=== PATIENT | male | born 1945 | race Caucasian/White ===

== ENCOUNTER 2020-08-03 07:40 | Emergency (ER) | payer MEDICARE ==
[2020-08-03] MEDS ORDERED: ONDANSETRON HCL 4 MG/2 ML VIAL ONE (08:12)
[2020-08-03] MEDS ORDERED: ACETAMINOPHEN 325 MG TAB ONE (08:12)
[2020-08-03] MEDS ORDERED: SODIUM CHLORIDE 0.9% 1000ML 1,000 ML IV ONE (08:13)
[2020-08-03 08:43] LABS: BASOPHILS % (AUTO) 0.3 % (0.0-5.0); EOSINOPHILS % (AUTO) 0.3 % (0.0-8.0); HEMATOCRIT 44.9 % (42-54); LYMPHOCYTES % (AUTO) 4.6 % (21.0-51.0); MEAN CORPUSCULAR HEMOGLOBIN 31.7 pg (27.0-33.0); MEAN CORPUSCULAR HGB CONC 34.1 g/dL (32.0-36.0); MONOCYTES % (AUTO) 5.1 % (3.0-13.0); NEUTROPHILS % (AUTO) 89.4 % (40.0-77.0); PLATELET COUNT (AUTO) 154 K/uL (130-400); RED BLOOD CELL COUNT(AUTO) 4.83 MIL/uL (4.50-6.20); RED CELL DISTRIBUTION WIDTH 12.2 % (11.0-15.5); WHITE BLOOD COUNT (AUTO) 8.8 K/uL (4.8-10.8)
[2020-08-03 08:52] LABS: POTASSIUM 3.7 mmol/L (3.5-5.1)
[2020-08-03 08:56] LABS: ALBUMIN 3.2 g/dL (3.5-5.0); BILIRUBIN,TOTAL 0.9 mg/dL (0.2-1.0); TOTAL PROTEIN, SERUM 7.4 g/dL (6.0-8.3)
[2020-08-03 09:04] LABS: INR 1.16 (0.85-1.15); PROTHROMBIN TIME 12.5 SEC (9.6-11.6)
[2020-08-03 09:05] LABS: PARTIAL THROMBOPLASTIN TIME 33.7 SEC (26.3-35.5)
[2020-08-04] MEDS ORDERED: pradaxa (21:10)
[2020-08-04] MEDS ORDERED: OMEP20CA12 PO (21:11)
[2020-08-04] MEDS ORDERED: SIMVASTAT (21:12)
[2020-08-04] MEDS ORDERED: atenolo (21:12)
== END 2020-08-03 09:58 | disposition home or self-care (01) ==
LOC: EDH 07:40
DX: U07.1 COVID-19 (principal); I48.91 Unspecified atrial fibrillation; Z91.048 Other nonmedicinal substance allergy status
CPT/HCPCS: 36415; 71045; 80053; 82550; 84484; 85025; 85610; 85730; 87040 ×2; 87426; 87804 ×2; 93005; 96361; 96374; 99285; J2405; J7030

== ENCOUNTER 2020-08-04 14:22 | Inpatient (IN) | payer MEDICARE ==
[~2020-08-04] VITALS: Ht 177.8 cm; Wt 116.6 kg
[2020-08-04 15:31] LABS: BASOPHILS % (AUTO) 0.3 % (0.0-5.0); EOSINOPHILS % (AUTO) 0.1 % (0.0-8.0); HEMATOCRIT 43.2 % (42-54); LYMPHOCYTES % (AUTO) 5.9 % (21.0-51.0); MEAN CORPUSCULAR HEMOGLOBIN 31.3 pg (27.0-33.0); MEAN CORPUSCULAR VOLUME 91.9 fL (79-99); MONOCYTES % (AUTO) 4.5 % (3.0-13.0); NEUTROPHILS % (AUTO) 88.9 % (40.0-77.0); PLATELET COUNT (AUTO) 152 K/uL (130-400); WHITE BLOOD COUNT (AUTO) 6.9 K/uL (4.8-10.8)
[2020-08-04] MEDS ORDERED: ROCURONIUM BROMIDE 10MG/1ML 5ML VL IV ONE (15:35)
[2020-08-04] MEDS ORDERED: ONDANSETRON 4MG INJ ONE (15:49)
[2020-08-04 15:58] LABS: CARBON DIOXIDE 27 mmol/L (21-32); CHLORIDE 99 mmol/L (101-111); GLOMERULAR FILTR. RATE CALC 78 mL/min (>60); GLUCOSE,RANDOM 159 mg/dL (70-105); POTASSIUM 3.4 mmol/L (3.5-5.1); SODIUM SERUM 135 mmol/L (136-145); UREA NITROGEN, BLOOD 13 mg/dL (7-18)
[2020-08-04 15:59] LABS: INR 1.19 (0.85-1.15); PROTHROMBIN TIME 12.8 SEC (9.6-11.6)
[2020-08-04 16:00] LABS: PARTIAL THROMBOPLASTIN TIME 30.9 SEC (26.3-35.5)
[2020-08-04] MEDS ORDERED: ACETAMINOPHEN 325 MG TAB ONE (16:09)
[2020-08-04 16:11] LABS: ALANINE AMINOTRANSFERASE 22 U/L (12-78); ALBUMIN 3.1 g/dL (3.5-5.0); ASPARTATE AMINOTRANSFERASE 30 U/L (10-37); BILIRUBIN,TOTAL 1.1 mg/dL (0.2-1.0); CREATINE KINASE, TOTAL 112 U/L (21-232); MYOGLOBIN 95 ng/mL (10-92); TOTAL PROTEIN, SERUM 7.4 g/dL (6.0-8.3); TROPONIN I < 0.04 ng/mL (0.00-0.06)
[2020-08-04 16:17] LABS: APPEARANCE,URINE Clear (CLEAR); BILIRUBIN,URINE Small (NEGATIVE); COLOR,URINE Dark Yellow (YELLOW); GLUCOSE, URINE (UA) Negative (NEGATIVE); KETONES,URINE 15 mg/dL (NEGATIVE); LEUKOCYTE ESTERASE ,URINE Negative (NEGATIVE); NITRATE,URINE Negative (NEGATIVE); OCCULT BLOOD,URINE Moderate (NEGATIVE); PROTEIN,URINE POS 1+ mg/dL (NEGATIVE)
[2020-08-04 16:27] LABS: BACTERIA,URINE Few /HPF (None Seen); MUCUS,URINE Moderate LPF (None Seen); RBC,URINE 0-1 /HPF (0-1); SQUAMOUS EPITHELIAL CELL,UR Few /HPF (0-2); WBC,URINE 0-1 /HPF (0-1)
[2020-08-04] MEDS ORDERED: DEXAMETHASONE SOD PHOSPHATE 4 MG/ML 1ML VIAL IVP SCH (16:45)
[2020-08-04] MEDS ORDERED: ONDANSETRON 4MG INJ IV PRN (16:45)
[2020-08-04] MEDS ORDERED: PHARMACY COMMUNICATION MISC SCH (16:45)
[2020-08-04] MEDS ORDERED: KCL 20 MEQ ERTAB PO PRN (16:45)
[2020-08-04] MEDS ORDERED: LIDOCAINE HCL-MPF 1% 2ML VIAL IV PRN (16:45)
[2020-08-04] MEDS ORDERED: ERGOCALCIFEROL (VITAMIN D2) 50,000 UNIT CAPSULE PO ONE (16:45)
[2020-08-04] MEDS ORDERED: LACTULOSE 20 GM/30 ML UDCUP PO PRN (16:45)
[2020-08-04] MEDS ORDERED: ACETAMINOPHEN 325 MG TAB PO PRN ×2 (16:45)
[2020-08-04] MEDS ORDERED: ERGOCALCIFEROL (VITAMIN D2) 50,000 UNIT CAPSULE ONE (17:16)
[2020-08-04] MEDS ORDERED: DEXAMETHASONE SOD PHOSPHATE 4 MG/ML 1ML VIAL ONE (17:16)
[2020-08-04] MEDS ORDERED: POTASSIUM CHLORIDE 10% ELIXIR 20 MEQ/15 ML UDCUP ONE (17:41)
[2020-08-04] MEDS ORDERED: COMPOUND IV REFRIGERATED 1 EACH IVSOLN MISC PRN (18:00)
[2020-08-04] MEDS ORDERED: REMDESIVIR (EUA) 520 200 MG in 0.9% NACL 250ML 250 ML IV ONE (18:00)
[2020-08-04] MEDS ORDERED: KCL 20 MEQ ERTAB PO ONE (19:30)
[2020-08-04] MEDS ORDERED: FAMOTIDINE 20MG TAB PO SCH (21:00)
[2020-08-04] MEDS ORDERED: pradaxa (21:10)
[2020-08-04] MEDS ORDERED: OMEP20CA12 PO (21:11)
[2020-08-04] MEDS ORDERED: atenolo (21:12)
[2020-08-04] MEDS ORDERED: SIMVASTAT (21:12)
[2020-08-04] MEDS ORDERED: DiphenhydrAMINE HCL 50 MG/ML VIAL ONE (21:30)
[2020-08-04 22:54] LABS: ABG BASE EXCESS -9.7 mmol/L (-2.0-3.0); ABG OXYGEN SATURATION 84.6 % (95.0-99.0); ABG PCO2 26 mmHg (35-48)
[2020-08-05] MEDS ORDERED: DiphenhydrAMINE HCL 50 MG/ML VIAL IVP PRN (03:45)
[2020-08-05] MEDS: REMDESIVIR LABS MISC SCH (06:00)
[2020-08-05 06:18] LABS: BASOPHILS % (AUTO) 0.2 % (0.0-5.0); EOSINOPHILS % (AUTO) 1.2 % (0.0-8.0); HEMATOCRIT 47.2 % (42-54); LYMPHOCYTES % (AUTO) 2.4 % (21.0-51.0); MEAN CORPUSCULAR HEMOGLOBIN 31.2 pg (27.0-33.0); MEAN CORPUSCULAR HGB CONC 33.7 g/dL (32.0-36.0); MEAN CORPUSCULAR VOLUME 92.7 fL (79-99); MONOCYTES % (AUTO) 2.3 % (3.0-13.0); NEUTROPHILS % (AUTO) 93.3 % (40.0-77.0); PLATELET COUNT (AUTO) 154 K/uL (130-400); RED BLOOD CELL COUNT(AUTO) 5.09 MIL/uL (4.50-6.20); RED CELL DISTRIBUTION WIDTH 12.3 % (11.0-15.5); WHITE BLOOD COUNT (AUTO) 13.7 K/uL (4.8-10.8)
[2020-08-05 06:46] LABS: ALBUMIN 2.8 g/dL (3.5-5.0); BILIRUBIN,TOTAL 0.6 mg/dL (0.2-1.0); CREATININE 1.3 mg/dL (0.5-1.5); POTASSIUM 3.7 mmol/L (3.5-5.1); TOTAL PROTEIN, SERUM 7.1 g/dL (6.0-8.3)
[2020-08-05 07:04] LABS: CRP QUANTITATIVE 175.4 mg/L (0.00-9.0)
[2020-08-05] MEDS: CEFTRIAXONE 1G VIAL IVP SCH ×2 (08:30→20:30)
[2020-08-05] MEDS ORDERED: DOXYCYCLINE 100MG+NS 250ML IV SCH (08:30)
[2020-08-05] MEDS: DEXAMETHASONE SOD PHOSPHATE 4 MG/ML 1ML VIAL IVP SCH ×2 (09:00→21:00)
[2020-08-05] MEDS: ASCORBIC ACID 500 MG TAB PO SCH (09:00)
[2020-08-05] MEDS: ENOXAPARIN SODIUM 40 MG/0.4 ML SYRINGE SQ SCH (09:00)
[2020-08-05] MEDS: ZINC SULFATE 220 CAPSULE PO SCH (09:00)
[2020-08-05] MEDS: FAMOTIDINE 20MG VIAL IV SCH ×2 (09:00→21:00)
[2020-08-05] MEDS: DEXTROSE 5%-LACTATED RINGERS 1,000 ML IV SCH (09:45)
[2020-08-05] MEDS: PHARMACY COMMUNICATION MISC SCH ×4 (09:45→21:45)
[2020-08-05] MEDS ORDERED: DEXAMETHASONE SOD PHOSPHATE 4 MG/ML 1ML VIAL ONE ×2 (11:10→20:39)
[2020-08-05] MEDS ORDERED: ASCORBIC ACID 500 MG TAB ONE (11:10)
[2020-08-05] MEDS ORDERED: FAMOTIDINE 20MG VIAL IV ONE (11:11)
[2020-08-05] MEDS ORDERED: ZINC SULFATE 220 CAPSULE ONE (11:11)
[2020-08-05] MEDS ORDERED: DOXYCYCLINE 100MG+NS 250ML 250 ML IV ONE ×2 (11:11→20:39)
[2020-08-05] MEDS ORDERED: CEFTRIAXONE 1G VIAL ONE ×2 (11:11→20:39)
[2020-08-05] MEDS: DOXYCYCLINE 100MG+NS 250ML 250 ML IV SCH ×2 (12:33→21:00)
[2020-08-05] MEDS: REMDESIVIR (EUA) 520 100 MG in 0.9% NACL 250ML 250 ML IV SCH (14:00)
[2020-08-05] MEDS ORDERED: ENOXAPARIN SODIUM 40 MG/0.4 ML SYRINGE SQ ONE (14:20)
[2020-08-05] MEDS ORDERED: REMDESIVIR (EUA) 520 100 MG in 0.9% NACL 250ML 250 ML IV SCH (18:00)
[2020-08-05] MEDS ORDERED: FAMOTIDINE 20MG TAB ONE (20:39)
[2020-08-05] MEDS ORDERED: DEXTROSE 5%-LACTATED RINGERS 1,000 ML IV ONE (20:39)
[2020-08-05] MEDS ORDERED: DiphenhydrAMINE HCL 50 MG/ML VIAL ONE (21:44)
[2020-08-06] MEDS: PHARMACY COMMUNICATION MISC SCH ×6 (01:45→21:45)
[2020-08-06 02:00] VITALS: BP 128/85
[2020-08-06 04:00] VITALS: BP 130/78
[2020-08-06] MEDS: DEXTROSE 5%-LACTATED RINGERS 1,000 ML IV SCH (05:46)
[2020-08-06] MEDS: REMDESIVIR LABS MISC SCH (05:46)
[2020-08-06 06:36] LABS: BASOPHILS % (AUTO) 0.3 % (0.0-5.0); EOSINOPHILS % (AUTO) 0.2 % (0.0-8.0); HEMATOCRIT 47.3 % (42-54); LYMPHOCYTES % (AUTO) 1.5 % (21.0-51.0); MEAN CORPUSCULAR HEMOGLOBIN 30.5 pg (27.0-33.0); MEAN CORPUSCULAR HGB CONC 33.2 g/dL (32.0-36.0); MONOCYTES % (AUTO) 3.9 % (3.0-13.0); NEUTROPHILS % (AUTO) 93.5 % (40.0-77.0); PLATELET COUNT (AUTO) 197 K/uL (130-400); RED BLOOD CELL COUNT(AUTO) 5.14 MIL/uL (4.50-6.20); RED CELL DISTRIBUTION WIDTH 12.4 % (11.0-15.5); WHITE BLOOD COUNT (AUTO) 18.4 K/uL (4.8-10.8)
[2020-08-06 06:56] LABS: ALBUMIN 2.8 g/dL (3.5-5.0); BILIRUBIN,TOTAL 0.5 mg/dL (0.2-1.0); CRP QUANTITATIVE 158.5 mg/L (0.00-9.0); POTASSIUM 4.2 mmol/L (3.5-5.1); TOTAL PROTEIN, SERUM 7.2 g/dL (6.0-8.3)
[2020-08-06] MEDS: ENOXAPARIN SODIUM 40 MG/0.4 ML SYRINGE SQ SCH (08:09)
[2020-08-06] MEDS: CEFTRIAXONE 1G VIAL IVP SCH ×2 (08:09→21:05)
[2020-08-06] MEDS: ZINC SULFATE 220 CAPSULE PO SCH (08:10)
[2020-08-06] MEDS: ASCORBIC ACID 500 MG TAB PO SCH (08:10)
[2020-08-06] MEDS: FAMOTIDINE 20MG VIAL IV SCH ×2 (08:10→21:05)
[2020-08-06] MEDS: DOXYCYCLINE 100MG+NS 250ML 250 ML IV SCH ×2 (08:12→21:05)
[2020-08-06] MEDS: DEXAMETHASONE SOD PHOSPHATE 4 MG/ML 1ML VIAL IVP SCH ×2 (08:21→21:05)
[2020-08-06 08:30] VITALS: BP 146/85
[2020-08-06 12:50] VITALS: BP 156/89
[2020-08-06] MEDS: REMDESIVIR (EUA) 520 100 MG in 0.9% NACL 250ML 250 ML IV SCH (16:00)
[2020-08-06 16:30] VITALS: BP 137/77
[2020-08-06] MEDS ORDERED: INSULIN HUMULIN R 100 UNIT/ML 3ML SQ SCH (18:15)
[2020-08-06 20:00] VITALS: BP 146/73
[2020-08-06] MEDS: INSULIN HUMULIN R 100 UNIT/ML 3ML SQ SCH (21:05)
[2020-08-07] MEDS: PHARMACY COMMUNICATION MISC SCH ×6 (01:45→21:45)
[2020-08-07] MEDS: REMDESIVIR LABS MISC SCH (06:00)
[2020-08-07 06:02] LABS: BASOPHILS % (AUTO) 0.1 % (0.0-5.0); HEMATOCRIT 46.9 % (42-54); LYMPHOCYTES % (AUTO) 1.5 % (21.0-51.0); MEAN CORPUSCULAR HEMOGLOBIN 30.9 pg (27.0-33.0); MEAN CORPUSCULAR VOLUME 93.4 fL (79-99); MONOCYTES % (AUTO) 3.5 % (3.0-13.0); NEUTROPHILS % (AUTO) 94.1 % (40.0-77.0); NUCLEATED RED BLOOD CELLS 0.1 % (0.0-0.19); PLATELET COUNT (AUTO) 214 K/uL (130-400); RED BLOOD CELL COUNT(AUTO) 5.02 MIL/uL (4.50-6.20); RED CELL DISTRIBUTION WIDTH 12.5 % (11.0-15.5); WHITE BLOOD COUNT (AUTO) 17.1 K/uL (4.8-10.8)
[2020-08-07 06:18] LABS: ALBUMIN 2.7 g/dL (3.5-5.0); BILIRUBIN,TOTAL 0.4 mg/dL (0.2-1.0); CRP QUANTITATIVE 113.8 mg/L (0.00-9.0); POTASSIUM 4.3 mmol/L (3.5-5.1); TOTAL PROTEIN, SERUM 6.9 g/dL (6.0-8.3)
[2020-08-07] MEDS: INSULIN HUMULIN R 100 UNIT/ML 3ML SQ SCH ×4 (06:39→21:19)
[2020-08-07 07:55] LABS: HEMOGLOBIN A1C 6.7 % (4.0-6.0)
[2020-08-07 08:56] VITALS: BP 131/69
[2020-08-07] MEDS: CEFTRIAXONE 1G VIAL IVP SCH ×2 (09:45→20:47)
[2020-08-07] MEDS: DEXAMETHASONE SOD PHOSPHATE 4 MG/ML 1ML VIAL IVP SCH ×2 (09:45→20:50)
[2020-08-07] MEDS: ASCORBIC ACID 500 MG TAB PO SCH (09:45)
[2020-08-07] MEDS: ZINC SULFATE 220 CAPSULE PO SCH (09:45)
[2020-08-07] MEDS: ENOXAPARIN SODIUM 40 MG/0.4 ML SYRINGE SQ SCH (09:47)
[2020-08-07] MEDS: DOXYCYCLINE 100MG+NS 250ML 250 ML IV SCH ×2 (09:47→20:47)
[2020-08-07] MEDS: FAMOTIDINE 20MG VIAL IV SCH ×2 (09:47→20:49)
[2020-08-07 12:12] VITALS: BP 164/88
[2020-08-07] MEDS: REMDESIVIR (EUA) 520 100 MG in 0.9% NACL 250ML 250 ML IV SCH (14:02)
[2020-08-07] MEDS: ATENOLOL 25 MG TABLET PO SCH (17:42)
[2020-08-07 17:56] VITALS: BP 137/77
[2020-08-07 20:00] VITALS: BP 125/79
[2020-08-07] MEDS: ENOXAPARIN SODIUM 120 MG/0.8ML SQ SCH (20:51)
[2020-08-08 00:05] VITALS: BP 131/78
[2020-08-08] MEDS: PHARMACY COMMUNICATION MISC SCH ×5 (01:36→21:45)
[2020-08-08 04:00] VITALS: BP 130/79
[2020-08-08] MEDS: REMDESIVIR LABS MISC SCH (06:00)
[2020-08-08 06:25] LABS: BASOPHILS % (AUTO) 0.2 % (0.0-5.0); HEMATOCRIT 44.8 % (42-54); LYMPHOCYTES % (AUTO) 1.9 % (21.0-51.0); MEAN CORPUSCULAR HEMOGLOBIN 31.4 pg (27.0-33.0); MEAN CORPUSCULAR HGB CONC 33.9 g/dL (32.0-36.0); MEAN CORPUSCULAR VOLUME 92.6 fL (79-99); MONOCYTES % (AUTO) 3.9 % (3.0-13.0); PLATELET COUNT (AUTO) 215 K/uL (130-400); RED BLOOD CELL COUNT(AUTO) 4.84 MIL/uL (4.50-6.20); RED CELL DISTRIBUTION WIDTH 12.5 % (11.0-15.5); WHITE BLOOD COUNT (AUTO) 17.1 K/uL (4.8-10.8)
[2020-08-08 06:42] LABS: ALBUMIN 2.5 g/dL (3.5-5.0); BILIRUBIN,TOTAL 0.5 mg/dL (0.2-1.0); CREATININE 0.9 mg/dL (0.5-1.5); CRP QUANTITATIVE 80.5 mg/L (0.00-9.0); POTASSIUM 4.3 mmol/L (3.5-5.1); TOTAL PROTEIN, SERUM 6.4 g/dL (6.0-8.3)
[2020-08-08] MEDS: INSULIN HUMULIN R 100 UNIT/ML 3ML SQ SCH ×4 (06:46→21:00)
[2020-08-08] MEDS ORDERED: FAMOTIDINE 20MG TAB ONE (09:37)
[2020-08-08] MEDS: DOXYCYCLINE 100MG+NS 250ML 250 ML IV SCH ×2 (10:11→20:17)
[2020-08-08] MEDS: CEFTRIAXONE 1G VIAL IVP SCH ×2 (10:11→20:15)
[2020-08-08] MEDS: ASCORBIC ACID 500 MG TAB PO SCH (10:12)
[2020-08-08] MEDS: ZINC SULFATE 220 CAPSULE PO SCH (10:12)
[2020-08-08] MEDS: DEXAMETHASONE SOD PHOSPHATE 4 MG/ML 1ML VIAL IVP SCH ×2 (10:12→20:19)
[2020-08-08] MEDS: ATENOLOL 25 MG TABLET PO SCH (10:12)
[2020-08-08] MEDS: ENOXAPARIN SODIUM 120 MG/0.8ML SQ SCH ×2 (10:13→20:18)
[2020-08-08] MEDS: FUROSEMIDE 20MG VIAL IV SCH ×2 (12:28→20:18)
[2020-08-08] MEDS: REMDESIVIR (EUA) 520 100 MG in 0.9% NACL 250ML 250 ML IV SCH (15:18)
[2020-08-08] MEDS ORDERED: SIMV-43 PO (15:48)
[2020-08-08] MEDS ORDERED: DABI150C PO (15:48)
[2020-08-08] MEDS ORDERED: ATEN50TA PO (15:48)
[2020-08-08] MEDS ORDERED: OMEP40CA21 PO (15:48)
[2020-08-08 15:51] VITALS: BP 116/63
[2020-08-08] MEDS: FAMOTIDINE 20MG TAB PO SCH (20:17)
[2020-08-08 20:50] VITALS: BP 121/65
[2020-08-09] VITALS (57 sets, daily range): BP systolic 77–164; BP diastolic 45–96
[2020-08-09] MEDS: PHARMACY COMMUNICATION MISC SCH ×6 (01:00→21:00)
[2020-08-09] MEDS ORDERED: LORAZEPAM 2 MG/ML 1 ML VIAL ONE (05:05)
[2020-08-09] MEDS ORDERED: DEXMEDETOMIDINE HCL 400 MCG in 0.9%NACL 100ML 100 ML IV SCH (05:10)
[2020-08-09] MEDS ORDERED: DEXMEDETOMIDINE HCL 200 MCG in 0.9%NACL 50ML 50 ML IV SCH (05:15)
[2020-08-09] MEDS ORDERED: DEXMEDETOMIDINE HCL 200 MCG/2 ML VIAL IV ONE (05:55)
[2020-08-09] MEDS ORDERED: 0.9%NACL 100ML 100 ML IV ONE (05:56)
[2020-08-09 06:32] LABS: BASOPHILS % (AUTO) 0.3 % (0.0-5.0); EOSINOPHILS % (AUTO) 0.7 % (0.0-8.0); HEMATOCRIT 49.8 % (42-54); LYMPHOCYTES % (AUTO) 1.7 % (21.0-51.0); MEAN CORPUSCULAR HEMOGLOBIN 30.9 pg (27.0-33.0); MEAN CORPUSCULAR HGB CONC 32.7 g/dL (32.0-36.0); MEAN CORPUSCULAR VOLUME 94.5 fL (79-99); MONOCYTES % (AUTO) 3.6 % (3.0-13.0); NEUTROPHILS % (AUTO) 92.9 % (40.0-77.0); NUCLEATED RED BLOOD CELLS 0.1 % (0.0-0.19); PLATELET COUNT (AUTO) 245 K/uL (130-400); RED BLOOD CELL COUNT(AUTO) 5.27 MIL/uL (4.50-6.20); RED CELL DISTRIBUTION WIDTH 12.5 % (11.0-15.5); WHITE BLOOD COUNT (AUTO) 20.4 K/uL (4.8-10.8)
[2020-08-09 06:47] LABS: ALBUMIN 2.5 g/dL (3.5-5.0); BILIRUBIN,TOTAL 0.7 mg/dL (0.2-1.0); CREATININE 1.1 mg/dL (0.5-1.5); CRP QUANTITATIVE 109.9 mg/L (0.00-9.0); POTASSIUM 3.9 mmol/L (3.5-5.1); TOTAL PROTEIN, SERUM 6.5 g/dL (6.0-8.3)
[2020-08-09] MEDS ORDERED: LORAZEPAM 2 MG/ML 1 ML VIAL IM ONE (07:15)
[2020-08-09] MEDS ORDERED: FUROSEMIDE 40MG VIAL IV SCH (07:15)
[2020-08-09 07:38] LABS: ABG BASE EXCESS -1.1 mmol/L (-2.0-3.0); ABG HCO3 23.4 mmol/L (21.0-28.0); ABG OXYGEN SATURATION 80.9 % (95.0-99.0); ABG PCO2 39 mmHg (35-48)
[2020-08-09] MEDS: CEFTRIAXONE 1G VIAL IVP SCH ×2 (07:39→20:50)
[2020-08-09] MEDS ORDERED: PROPOFOL 1000 MG/100 ML IV STA (08:04)
[2020-08-09] MEDS ORDERED: FENTANYL CITRATE PF 0.05 MG/ML 1,000 MCG in 0.9%NACL 100ML 100 ML IVPB STA (08:04)
[2020-08-09] MEDS ORDERED: DEXMEDETOMIDINE HCL 200 MCG in 0.9%NACL 50ML 50 ML IV STA (08:24)
[2020-08-09] MEDS: ATENOLOL 25 MG TABLET PO SCH (09:00)
[2020-08-09] MEDS: DEXAMETHASONE SOD PHOSPHATE 4 MG/ML 1ML VIAL IVP SCH ×2 (10:15→20:49)
[2020-08-09] MEDS ORDERED: NOREPINEPHRIN 4MG/NS 250ML 250 ML IV SCH (10:15)
[2020-08-09] MEDS: ASCORBIC ACID 500 MG TAB PO SCH (10:15)
[2020-08-09] MEDS: DOXYCYCLINE 100MG+NS 250ML 250 ML IV SCH ×2 (10:15→20:44)
[2020-08-09] MEDS: ZINC SULFATE 220 CAPSULE PO SCH (10:16)
[2020-08-09] MEDS: FUROSEMIDE 20MG VIAL IV SCH ×2 (10:16→20:49)
[2020-08-09] MEDS: FAMOTIDINE 20MG TAB PO SCH ×2 (10:16→20:50)
[2020-08-09] MEDS: ENOXAPARIN SODIUM 120 MG/0.8ML SQ SCH ×2 (10:17→20:46)
[2020-08-09 10:29] LABS: ABG BASE EXCESS 5.7 mmol/L (-2.0-3.0); ABG HCO3 30.2 mmol/L (21.0-28.0); ABG OXYGEN SATURATION 90.8 % (95.0-99.0); ABG PCO2 43 mmHg (35-48)
[2020-08-09] MEDS: INSULIN HUMULIN R 100 UNIT/ML 3ML SQ SCH ×4 (11:30→20:48)
[2020-08-09] MEDS: NOREPINEPHRINE BITARTRATE 8 MG/NS 250ML IV SCH ×2 (12:01)
[2020-08-09] MEDS: FENTANYL 2500MCG+NS 250ML 250 ML IV SCH (12:03)
[2020-08-09] MEDS: VECURONIUM 10MG/10ML 50 MG in 0.9%NACL 50ML 50 ML IV SCH ×3 (12:04→23:27)
[2020-08-09] MEDS ORDERED: MIDAZOLAM 50MG-0.9% NS 50ML 50 ML BAG IV STA (12:28)
[2020-08-09] MEDS ORDERED: SODIUM BICARB 50MEQ 50ML VIAL IV SCH (14:10)
[2020-08-09] MEDS ORDERED: VASOPRESSIN 20 UNITS in 0.9%NACL 100ML 100 ML IV SCH (14:30)
[2020-08-10] VITALS (58 sets, daily range): BP systolic 69–186; BP diastolic 48–115
[2020-08-10 04:53] LABS: BASOPHILS % (AUTO) 0.3 % (0.0-5.0); HEMATOCRIT 49.9 % (42-54); MEAN CORPUSCULAR HEMOGLOBIN 30.9 pg (27.0-33.0); MEAN CORPUSCULAR HGB CONC 32.9 g/dL (32.0-36.0); MONOCYTES % (AUTO) 2.4 % (3.0-13.0); NEUTROPHILS % (AUTO) 94.2 % (40.0-77.0); NUCLEATED RED BLOOD CELLS 0.1 % (0.0-0.19); PLATELET COUNT (AUTO) 262 K/uL (130-400); RED BLOOD CELL COUNT(AUTO) 5.31 MIL/uL (4.50-6.20); RED CELL DISTRIBUTION WIDTH 12.7 % (11.0-15.5); WHITE BLOOD COUNT (AUTO) 17.6 K/uL (4.8-10.8)
[2020-08-10] MEDS: PHARMACY COMMUNICATION MISC SCH ×6 (05:00→21:42)
[2020-08-10 05:05] LABS: ALBUMIN 2.4 g/dL (3.5-5.0); BILIRUBIN,TOTAL 0.5 mg/dL (0.2-1.0); CREATININE 1.1 mg/dL (0.5-1.5); CRP QUANTITATIVE 179.6 mg/L (0.00-9.0); POTASSIUM 4.1 mmol/L (3.5-5.1); TOTAL PROTEIN, SERUM 5.7 g/dL (6.0-8.3)
[2020-08-10] MEDS: INSULIN HUMULIN R 100 UNIT/ML 3ML SQ SCH ×4 (06:03→23:00)
[2020-08-10] MEDS: NOREPINEPHRINE BITARTRATE 8 MG/NS 250ML IV SCH ×2 (06:09)
[2020-08-10 06:29] LABS: ABG BASE EXCESS 3.3 mmol/L (-2.0-3.0); ABG HCO3 26.7 mmol/L (21.0-28.0); ABG OXYGEN SATURATION 99.5 % (95.0-99.0); ABG PCO2 37 mmHg (35-48)
[2020-08-10] MEDS: DOXYCYCLINE 100MG+NS 250ML 250 ML IV SCH ×2 (08:59→22:58)
[2020-08-10] MEDS ORDERED: INSULIN GLARGINE 100 UNITS/ML 10 ML VIAL SQ SCH ×3 (09:00→21:00)
[2020-08-10] MEDS: CEFTRIAXONE 1G VIAL IVP SCH ×2 (09:00→21:00)
[2020-08-10] MEDS: FAMOTIDINE 20MG TAB PO SCH ×2 (09:00→21:00)
[2020-08-10] MEDS: DEXAMETHASONE SOD PHOSPHATE 4 MG/ML 1ML VIAL IVP SCH ×2 (09:00→21:00)
[2020-08-10] MEDS: ATENOLOL 25 MG TABLET PO SCH (09:00)
[2020-08-10] MEDS: ZINC SULFATE 220 CAPSULE PO SCH (09:00)
[2020-08-10] MEDS: ASCORBIC ACID 500 MG TAB PO SCH (09:00)
[2020-08-10] MEDS: FUROSEMIDE 20MG VIAL IV SCH ×2 (09:01→22:58)
[2020-08-10] MEDS: ENOXAPARIN SODIUM 120 MG/0.8ML SQ SCH ×2 (09:02→21:00)
[2020-08-10] MEDS: VECURONIUM 10MG/10ML 50 MG in 0.9%NACL 50ML 50 ML IV SCH ×2 (09:21→14:40)
[2020-08-10] MEDS: FENTANYL 2500MCG+NS 250ML 250 ML IV SCH (10:50)
[2020-08-10] MEDS: DOCUSATE NA 100MG/10ML UDCUP GT SCH (14:00)
[2020-08-10] MEDS: DEXTROSE 5%-WATER 1,000 ML IV SCH (14:40)
[2020-08-11] VITALS (54 sets, daily range): BP systolic 84–187; BP diastolic 57–113
[2020-08-11] MEDS: PHARMACY COMMUNICATION MISC SCH (01:00)
[2020-08-11] MEDS: VECURONIUM 10MG/10ML 50 MG in 0.9%NACL 50ML 50 ML IV SCH ×3 (03:05→13:15)
[2020-08-11 05:23] LABS: BASOPHILS % (AUTO) 0.2 % (0.0-5.0); HEMATOCRIT 50.6 % (42-54); LYMPHOCYTES % (AUTO) 2.2 % (21.0-51.0); MEAN CORPUSCULAR HEMOGLOBIN 30.5 pg (27.0-33.0); MEAN CORPUSCULAR HGB CONC 32.2 g/dL (32.0-36.0); MEAN CORPUSCULAR VOLUME 94.8 fL (79-99); MONOCYTES % (AUTO) 2.8 % (3.0-13.0); NEUTROPHILS % (AUTO) 93.7 % (40.0-77.0); NUCLEATED RED BLOOD CELLS 0.2 % (0.0-0.19); PLATELET COUNT (AUTO) 237 K/uL (130-400); RED BLOOD CELL COUNT(AUTO) 5.34 MIL/uL (4.50-6.20); RED CELL DISTRIBUTION WIDTH 13.1 % (11.0-15.5); WHITE BLOOD COUNT (AUTO) 16.2 K/uL (4.8-10.8)
[2020-08-11 05:39] LABS: ALBUMIN 2.2 g/dL (3.5-5.0); BILIRUBIN,TOTAL 0.5 mg/dL (0.2-1.0); CREATININE 1.2 mg/dL (0.5-1.5); POTASSIUM 4.1 mmol/L (3.5-5.1); TOTAL PROTEIN, SERUM 6.3 g/dL (6.0-8.3)
[2020-08-11] MEDS: INSULIN HUMULIN R 100 UNIT/ML 3ML SQ SCH ×4 (06:49→20:52)
[2020-08-11] MEDS: ENOXAPARIN SODIUM 120 MG/0.8ML SQ SCH ×2 (08:48→20:59)
[2020-08-11] MEDS: FAMOTIDINE 20MG TAB PO SCH ×2 (08:49→20:27)
[2020-08-11] MEDS: SENNOSIDES 8.6 MG TABLET GT SCH (08:49)
[2020-08-11] MEDS: ASCORBIC ACID 500 MG TAB PO SCH (08:49)
[2020-08-11] MEDS: ZINC SULFATE 220 CAPSULE PO SCH (08:49)
[2020-08-11] MEDS: DEXAMETHASONE SOD PHOSPHATE 4 MG/ML 1ML VIAL IVP SCH ×2 (08:49→20:31)
[2020-08-11] MEDS: FUROSEMIDE 20MG VIAL IV SCH ×2 (08:51→20:27)
[2020-08-11] MEDS: POLYETHYLENE GLYCOL 3350 17 GM POWD.PACK PO SCH (08:54)
[2020-08-11] MEDS: DOXYCYCLINE 100MG+NS 250ML 250 ML IV SCH ×2 (08:54→20:26)
[2020-08-11] MEDS: CEFTRIAXONE 1G VIAL IVP SCH ×2 (08:59→20:27)
[2020-08-11] MEDS: ATENOLOL 25 MG TABLET PO SCH (09:00)
[2020-08-11] MEDS: FENTANYL 2500MCG+NS 250ML 250 ML IV SCH (09:25)
[2020-08-11] MEDS: DEXTROSE 5%-WATER 1,000 ML IV SCH (12:46)
[2020-08-11] MEDS: DOCUSATE NA 100MG/10ML UDCUP GT SCH (13:44)
[2020-08-11] MEDS: NOREPINEPHRINE BITARTRATE 8 MG/NS 250ML IV SCH ×2 (13:58)
[2020-08-11 14:37] LABS: ABG BASE EXCESS 3.8 mmol/L (-2.0-3.0); ABG HCO3 26.1 mmol/L (21.0-28.0); ABG OXYGEN SATURATION 95.7 % (95.0-99.0); ABG PCO2 33 mmHg (35-48)
[2020-08-11] MEDS ORDERED: INSULIN GLARGINE 100 UNITS/ML 10 ML VIAL SQ SCH (21:00)
[2020-08-11] MEDS ORDERED: VECURONIUM 10MG/10ML IV ONE (22:50)
[2020-08-12] VITALS (43 sets, daily range): BP systolic 92–131; BP diastolic 62–96
[2020-08-12] MEDS ORDERED: VECURONIUM 10MG/10ML IV ONE (03:04)
[2020-08-12] MEDS: VECURONIUM 10MG/10ML 50 MG in 0.9%NACL 50ML 50 ML IV SCH ×3 (03:21→19:26)
[2020-08-12 05:25] LABS: ABG BASE EXCESS 3.3 mmol/L (-2.0-3.0); ABG OXYGEN SATURATION 96.5 % (95.0-99.0); ABG PCO2 38 mmHg (35-48)
[2020-08-12 05:50] LABS: BASOPHILS % (AUTO) 0.1 % (0.0-5.0); HEMATOCRIT 50.7 % (42-54); LYMPHOCYTES % (AUTO) 2.5 % (21.0-51.0); MEAN CORPUSCULAR HEMOGLOBIN 30.6 pg (27.0-33.0); MEAN CORPUSCULAR VOLUME 95.7 fL (79-99); MONOCYTES % (AUTO) 2.5 % (3.0-13.0); NEUTROPHILS % (AUTO) 93.9 % (40.0-77.0); NUCLEATED RED BLOOD CELLS 0.1 % (0.0-0.19); PLATELET COUNT (AUTO) 217 K/uL (130-400); RED CELL DISTRIBUTION WIDTH 13.1 % (11.0-15.5); WHITE BLOOD COUNT (AUTO) 13.4 K/uL (4.8-10.8)
[2020-08-12] MEDS: INSULIN HUMULIN R 100 UNIT/ML 3ML SQ SCH ×7 (06:10→22:12)
[2020-08-12 06:11] LABS: BILIRUBIN,TOTAL 0.5 mg/dL (0.2-1.0); CREATININE 1.2 mg/dL (0.5-1.5); CRP QUANTITATIVE 58.1 mg/L (0.00-9.0); POTASSIUM 4.1 mmol/L (3.5-5.1)
[2020-08-12] MEDS: FUROSEMIDE 20MG VIAL IV SCH ×2 (09:28→20:39)
[2020-08-12] MEDS: ZINC SULFATE 220 CAPSULE PO SCH (09:28)
[2020-08-12] MEDS: ENOXAPARIN SODIUM 120 MG/0.8ML SQ SCH ×2 (09:30→20:43)
[2020-08-12] MEDS: POLYETHYLENE GLYCOL 3350 17 GM POWD.PACK PO SCH (09:30)
[2020-08-12] MEDS: FAMOTIDINE 20MG TAB PO SCH ×2 (09:30→20:41)
[2020-08-12] MEDS: DOXYCYCLINE 100MG+NS 250ML 250 ML IV SCH ×2 (09:31→20:38)
[2020-08-12] MEDS: SENNOSIDES 8.6 MG TABLET GT SCH (09:31)
[2020-08-12] MEDS: ASCORBIC ACID 500 MG TAB PO SCH (09:32)
[2020-08-12] MEDS: DEXAMETHASONE SOD PHOSPHATE 4 MG/ML 1ML VIAL IVP SCH ×2 (09:32→20:40)
[2020-08-12] MEDS: ATENOLOL 25 MG TABLET PO SCH (09:33)
[2020-08-12] MEDS: MIDAZOLAM 100MG-0.9% NS 100ML 100 ML IV SCH (10:38)
[2020-08-12] MEDS: DOCUSATE NA 100MG/10ML UDCUP GT SCH (14:11)
[2020-08-12] MEDS ORDERED: INSULIN GLARGINE 100 UNITS/ML 10 ML VIAL SQ SCH (21:00)
[2020-08-13] VITALS (69 sets, daily range): BP systolic 103–162; BP diastolic 71–109
[2020-08-13 05:18] LABS: BASOPHILS % (AUTO) 0.2 % (0.0-5.0); HEMATOCRIT 50.7 % (42-54); LYMPHOCYTES % (AUTO) 2.7 % (21.0-51.0); MEAN CORPUSCULAR HEMOGLOBIN 30.3 pg (27.0-33.0); MEAN CORPUSCULAR VOLUME 94.9 fL (79-99); MONOCYTES % (AUTO) 2.6 % (3.0-13.0); NEUTROPHILS % (AUTO) 93.8 % (40.0-77.0); PLATELET COUNT (AUTO) 202 K/uL (130-400); RED BLOOD CELL COUNT(AUTO) 5.34 MIL/uL (4.50-6.20); RED CELL DISTRIBUTION WIDTH 13.1 % (11.0-15.5); WHITE BLOOD COUNT (AUTO) 14.9 K/uL (4.8-10.8)
[2020-08-13 05:42] LABS: ALBUMIN 1.8 g/dL (3.5-5.0); BILIRUBIN,TOTAL 0.6 mg/dL (0.2-1.0); CREATININE 0.9 mg/dL (0.5-1.5); MAGNESIUM 2.3 mg/dL (1.80-2.40); TOTAL PROTEIN, SERUM 5.7 g/dL (6.0-8.3)
[2020-08-13] MEDS: FENTANYL 2500MCG+NS 250ML 250 ML IV SCH ×2 (05:57→23:56)
[2020-08-13] MEDS: VECURONIUM 10MG/10ML 50 MG in 0.9%NACL 50ML 50 ML IV SCH (06:04)
[2020-08-13] MEDS: INSULIN HUMULIN R 100 UNIT/ML 3ML SQ SCH ×5 (06:06→18:10)
[2020-08-13 07:09] LABS: ABG BASE EXCESS 3.6 mmol/L (-2.0-3.0); ABG HCO3 27.7 mmol/L (21.0-28.0); ABG OXYGEN SATURATION 95.1 % (95.0-99.0); ABG PCO2 40 mmHg (35-48)
[2020-08-13] MEDS: SENNOSIDES 8.6 MG TABLET GT SCH (09:00)
[2020-08-13] MEDS: ASCORBIC ACID 500 MG TAB PO SCH (09:00)
[2020-08-13] MEDS: FUROSEMIDE 20MG VIAL IV SCH ×2 (09:00→21:07)
[2020-08-13] MEDS: FAMOTIDINE 20MG TAB PO SCH ×2 (09:00→21:07)
[2020-08-13] MEDS: DOXYCYCLINE 100MG+NS 250ML 250 ML IV SCH ×2 (09:00→21:04)
[2020-08-13] MEDS: ENOXAPARIN SODIUM 120 MG/0.8ML SQ SCH ×2 (09:00→21:09)
[2020-08-13] MEDS: DEXAMETHASONE SOD PHOSPHATE 4 MG/ML 1ML VIAL IVP SCH ×2 (09:00→21:07)
[2020-08-13] MEDS: ZINC SULFATE 220 CAPSULE PO SCH (09:00)
[2020-08-13] MEDS: POLYETHYLENE GLYCOL 3350 17 GM POWD.PACK PO SCH (11:15)
[2020-08-13] MEDS: DOCUSATE NA 100MG/10ML UDCUP GT SCH ×3 (11:22→21:13)
[2020-08-13] MEDS: 1/2 NS 1000ML 1,000 ML IV SCH (11:44)
[2020-08-13] MEDS: INSULIN GLARGINE 100 UNITS/ML 10 ML VIAL SQ SCH (21:11)
[2020-08-13] MEDS: MIDAZOLAM 100MG-0.9% NS 100ML 100 ML IV SCH (23:54)
[2020-08-14] VITALS (62 sets, daily range): BP systolic 84–193; BP diastolic 56–127
[2020-08-14] MEDS: INSULIN HUMULIN R 100 UNIT/ML 3ML SQ SCH ×7 (00:42→16:34)
[2020-08-14] MEDS: 1/2 NS 1000ML 1,000 ML IV SCH (05:31)
[2020-08-14] MEDS: DOCUSATE NA 100MG/10ML UDCUP GT SCH ×3 (05:31→22:22)
[2020-08-14 05:33] LABS: BASOPHILS % (AUTO) 0.2 % (0.0-5.0); HEMATOCRIT 50.1 % (42-54); LYMPHOCYTES % (AUTO) 2.6 % (21.0-51.0); MEAN CORPUSCULAR HEMOGLOBIN 30.4 pg (27.0-33.0); MEAN CORPUSCULAR HGB CONC 31.9 g/dL (32.0-36.0); MEAN CORPUSCULAR VOLUME 95.2 fL (79-99); NEUTROPHILS % (AUTO) 93.5 % (40.0-77.0); PLATELET COUNT (AUTO) 138 K/uL (130-400); RED BLOOD CELL COUNT(AUTO) 5.26 MIL/uL (4.50-6.20); WHITE BLOOD COUNT (AUTO) 12.9 K/uL (4.8-10.8)
[2020-08-14 05:41] LABS: ALBUMIN 1.8 g/dL (3.5-5.0); BILIRUBIN,TOTAL 0.6 mg/dL (0.2-1.0); CREATININE 0.9 mg/dL (0.5-1.5); CRP QUANTITATIVE 15.9 mg/L (0.00-9.0); POTASSIUM 4.2 mmol/L (3.5-5.1); TOTAL PROTEIN, SERUM 5.2 g/dL (6.0-8.3)
[2020-08-14 06:52] LABS: ABG BASE EXCESS 2.9 mmol/L (-2.0-3.0); ABG HCO3 25.6 mmol/L (21.0-28.0); ABG OXYGEN SATURATION 94.2 % (95.0-99.0); ABG PCO2 34 mmHg (35-48)
[2020-08-14] MEDS: ASCORBIC ACID 500 MG TAB PO SCH (09:50)
[2020-08-14] MEDS: FAMOTIDINE 20MG TAB PO SCH ×2 (09:50→21:01)
[2020-08-14] MEDS: ZINC SULFATE 220 CAPSULE PO SCH (09:50)
[2020-08-14] MEDS: SENNOSIDES 8.6 MG TABLET GT SCH (09:50)
[2020-08-14] MEDS: DEXAMETHASONE SOD PHOSPHATE 4 MG/ML 1ML VIAL IVP SCH ×2 (09:50→21:01)
[2020-08-14] MEDS: ENOXAPARIN SODIUM 120 MG/0.8ML SQ SCH ×2 (09:51→21:04)
[2020-08-14] MEDS: INSULIN GLARGINE 100 UNITS/ML 10 ML VIAL SQ SCH (21:02)
[2020-08-15] VITALS (57 sets, daily range): BP systolic 70–188; BP diastolic 51–117
[2020-08-15] MEDS: INSULIN HUMULIN R 100 UNIT/ML 3ML SQ SCH ×7 (00:33→16:11)
[2020-08-15] MEDS: MIDAZOLAM 100MG-0.9% NS 100ML 100 ML IV SCH (01:05)
[2020-08-15] MEDS: DOCUSATE NA 100MG/10ML UDCUP GT SCH ×3 (05:31→21:33)
[2020-08-15 05:33] LABS: BASOPHILS % (AUTO) 0.2 % (0.0-5.0); HEMATOCRIT 48.8 % (42-54); MEAN CORPUSCULAR HEMOGLOBIN 30.8 pg (27.0-33.0); MEAN CORPUSCULAR HGB CONC 32.4 g/dL (32.0-36.0); MEAN CORPUSCULAR VOLUME 95.1 fL (79-99); MONOCYTES % (AUTO) 3.4 % (3.0-13.0); NEUTROPHILS % (AUTO) 93.2 % (40.0-77.0); PLATELET COUNT (AUTO) 138 K/uL (130-400); RED BLOOD CELL COUNT(AUTO) 5.13 MIL/uL (4.50-6.20); WHITE BLOOD COUNT (AUTO) 18.7 K/uL (4.8-10.8)
[2020-08-15 05:58] LABS: ALBUMIN 1.8 g/dL (3.5-5.0); BILIRUBIN,TOTAL 0.6 mg/dL (0.2-1.0); CREATININE 0.9 mg/dL (0.5-1.5); CRP QUANTITATIVE 6.5 mg/L (0.00-9.0); POTASSIUM 4.8 mmol/L (3.5-5.1); TOTAL PROTEIN, SERUM 4.7 g/dL (6.0-8.3)
[2020-08-15] MEDS: ENOXAPARIN SODIUM 120 MG/0.8ML SQ SCH (08:09)
[2020-08-15] MEDS: FAMOTIDINE 20MG TAB PO SCH ×2 (08:09→21:26)
[2020-08-15] MEDS: ZINC SULFATE 220 CAPSULE PO SCH (08:09)
[2020-08-15] MEDS: ASCORBIC ACID 500 MG TAB PO SCH (08:09)
[2020-08-15] MEDS: SENNOSIDES 8.6 MG TABLET GT SCH (08:09)
[2020-08-15] MEDS: DEXAMETHASONE SOD PHOSPHATE 4 MG/ML 1ML VIAL IVP SCH ×2 (08:09→21:26)
[2020-08-15] MEDS ORDERED: MIDAZOLAM 100MG-0.9% NS 100ML 100 ML IV SCH (14:45)
[2020-08-15] MEDS: PROPOFOL 1000 MG/100 ML 100 ML IV SCH (17:08)
[2020-08-15] MEDS: INSULIN GLARGINE 100 UNITS/ML 10 ML VIAL SQ SCH (21:31)
[2020-08-15] MEDS: ENOXAPARIN SODIUM 60 MG/0.6 ML SQ SCH (21:33)
[2020-08-16] VITALS (61 sets, daily range): BP systolic 77–213; BP diastolic 47–121
[2020-08-16] MEDS: PROPOFOL 1000 MG/100 ML 100 ML IV SCH ×3 (00:32→18:59)
[2020-08-16] MEDS: INSULIN HUMULIN R 100 UNIT/ML 3ML SQ SCH ×7 (00:34→17:33)
[2020-08-16 05:23] LABS: BASOPHILS % (AUTO) 0.3 % (0.0-5.0); HEMATOCRIT 54.2 % (42-54); MEAN CORPUSCULAR HEMOGLOBIN 30.8 pg (27.0-33.0); MEAN CORPUSCULAR HGB CONC 32.3 g/dL (32.0-36.0); MEAN CORPUSCULAR VOLUME 95.3 fL (79-99); MONOCYTES % (AUTO) 6.4 % (3.0-13.0); NEUTROPHILS % (AUTO) 89.3 % (40.0-77.0); NUCLEATED RED BLOOD CELLS 0.1 % (0.0-0.19); PLATELET COUNT (AUTO) 178 K/uL (130-400); RED BLOOD CELL COUNT(AUTO) 5.69 MIL/uL (4.50-6.20); RED CELL DISTRIBUTION WIDTH 13.2 % (11.0-15.5); WHITE BLOOD COUNT (AUTO) 22.5 K/uL (4.8-10.8)
[2020-08-16 05:52] LABS: ALBUMIN 1.9 g/dL (3.5-5.0); BILIRUBIN,TOTAL 0.7 mg/dL (0.2-1.0); CREATININE 1.1 mg/dL (0.5-1.5); POTASSIUM 4.8 mmol/L (3.5-5.1); TOTAL PROTEIN, SERUM 5.5 g/dL (6.0-8.3)
[2020-08-16] MEDS: DOCUSATE NA 100MG/10ML UDCUP GT SCH ×3 (05:54→22:13)
[2020-08-16] MEDS: DEXAMETHASONE SOD PHOSPHATE 4 MG/ML 1ML VIAL IVP SCH ×2 (09:22→22:11)
[2020-08-16] MEDS: ASCORBIC ACID 500 MG TAB PO SCH (09:23)
[2020-08-16] MEDS: ZINC SULFATE 220 CAPSULE PO SCH (09:23)
[2020-08-16] MEDS: FAMOTIDINE 20MG TAB PO SCH ×2 (09:23→22:11)
[2020-08-16] MEDS: SENNOSIDES 8.6 MG TABLET GT SCH (09:23)
[2020-08-16] MEDS: ENOXAPARIN SODIUM 60 MG/0.6 ML SQ SCH ×2 (09:28→22:13)
[2020-08-16] MEDS ORDERED: LABETALOL 20MG VIAL IV PRN (10:00)
[2020-08-16] MEDS ORDERED: NICARDIPINE 25MG INJ 50 MG in 0.9% NACL 250ML 230 ML IV SCH (10:00)
[2020-08-16] MEDS ORDERED: DEXMEDETOMIDINE HCL 400 MCG in 0.9%NACL 100ML 100 ML IV SCH ×2 (11:45→16:45)
[2020-08-16] MEDS ORDERED: INSULIN GLARGINE 100 UNITS/ML 10 ML VIAL SQ ONE (14:00)
[2020-08-16] MEDS ORDERED: FENTANYL CITRATE PF 0.05 MG/ML 1,000 MCG in 0.9%NACL 100ML 100 ML IVPB SCH (17:15)
[2020-08-16] MEDS ORDERED: FENTANYL CITRATE PF 0.05 MG/ML 1,000 MCG in 0.9%NACL 100ML 100 ML IVPB PRN (17:45)
[2020-08-16] MEDS: FENTANYL 2500MCG+NS 250ML 250 ML IV SCH (19:00)
[2020-08-16] MEDS: INSULIN GLARGINE 100 UNITS/ML 10 ML VIAL SQ SCH (22:12)
[2020-08-17] VITALS (64 sets, daily range): BP systolic 73–185; BP diastolic 43–107
[2020-08-17] MEDS: INSULIN HUMULIN R 100 UNIT/ML 3ML SQ SCH ×8 (00:25→23:28)
[2020-08-17 05:48] LABS: BASOPHILS % (AUTO) 0.3 % (0.0-5.0); HEMATOCRIT 54.4 % (42-54); LYMPHOCYTES % (AUTO) 3.7 % (21.0-51.0); MEAN CORPUSCULAR HEMOGLOBIN 30.4 pg (27.0-33.0); MEAN CORPUSCULAR VOLUME 94.9 fL (79-99); NEUTROPHILS % (AUTO) 88.7 % (40.0-77.0); NUCLEATED RED BLOOD CELLS 0.2 % (0.0-0.19); PLATELET COUNT (AUTO) 128 K/uL (130-400); RED BLOOD CELL COUNT(AUTO) 5.73 MIL/uL (4.50-6.20); RED CELL DISTRIBUTION WIDTH 13.2 % (11.0-15.5); WHITE BLOOD COUNT (AUTO) 23.5 K/uL (4.8-10.8)
[2020-08-17 06:17] LABS: CRP QUANTITATIVE 36.1 mg/L (0.00-9.0); POTASSIUM 4.9 mmol/L (3.5-5.1)
[2020-08-17] MEDS: DOCUSATE NA 100MG/10ML UDCUP GT SCH ×3 (06:19→20:52)
[2020-08-17] MEDS: SENNOSIDES 8.6 MG TABLET GT SCH (08:47)
[2020-08-17] MEDS: ENOXAPARIN SODIUM 60 MG/0.6 ML SQ SCH ×2 (08:47→20:51)
[2020-08-17] MEDS: POLYETHYLENE GLYCOL 3350 17 GM POWD.PACK PO SCH (08:47)
[2020-08-17] MEDS: DEXAMETHASONE SOD PHOSPHATE 4 MG/ML 1ML VIAL IVP SCH ×2 (08:47→20:52)
[2020-08-17] MEDS: ZINC SULFATE 220 CAPSULE PO SCH (08:48)
[2020-08-17] MEDS: FAMOTIDINE 20MG TAB PO SCH (08:48)
[2020-08-17] MEDS: ASCORBIC ACID 500 MG TAB PO SCH (08:48)
[2020-08-17] MEDS: INSULIN GLARGINE 100 UNITS/ML 10 ML VIAL SQ SCH ×2 (08:50→20:51)
[2020-08-17] MEDS: PROPOFOL 1000 MG/100 ML 100 ML IV SCH ×3 (08:53→21:03)
[2020-08-17] MEDS ORDERED: VANCOMYCIN PROTOCOL PER PHARMACY IV SCH (21:45)
[2020-08-17] MEDS ORDERED: VANCOMYCIN 1G/250ML KIT 250 ML IV ONE (22:00)
[2020-08-17] MEDS ORDERED: VANCOMYCIN 1G 2 GM in 0.9% NACL 500ML IV.SOLN 500 ML IV ONE (22:00)
[2020-08-17] MEDS: VANCOMYCIN 1G/250ML KIT 250 ML IV SCH ×2 (22:39→23:09)
[2020-08-18] VITALS (48 sets, daily range): BP systolic 88–182; BP diastolic 59–106
[2020-08-18] MEDS: FENTANYL 2500MCG+NS 250ML 250 ML IV SCH (03:52)
[2020-08-18] MEDS: PROPOFOL 1000 MG/100 ML 100 ML IV SCH ×2 (03:54→17:05)
[2020-08-18 04:17] LABS: ABG BASE EXCESS 4.5 mmol/L (-2.0-3.0); ABG HCO3 27.7 mmol/L (21.0-28.0); ABG OXYGEN SATURATION 91.9 % (95.0-99.0); ABG PCO2 37 mmHg (35-48)
[2020-08-18] MEDS: DOCUSATE NA 100MG/10ML UDCUP GT SCH ×3 (05:19→21:18)
[2020-08-18] MEDS: VANCOMYCIN 1G/250ML KIT 250 ML IV SCH ×2 (05:20→16:54)
[2020-08-18] MEDS: INSULIN HUMULIN R 100 UNIT/ML 3ML SQ SCH ×7 (05:23→23:40)
[2020-08-18 05:29] LABS: BASOPHILS % (AUTO) 0.2 % (0.0-5.0); HEMATOCRIT 48.3 % (42-54); MEAN CORPUSCULAR HEMOGLOBIN 30.6 pg (27.0-33.0); MEAN CORPUSCULAR HGB CONC 32.1 g/dL (32.0-36.0); MEAN CORPUSCULAR VOLUME 95.5 fL (79-99); MONOCYTES % (AUTO) 5.4 % (3.0-13.0); NEUTROPHILS % (AUTO) 89.3 % (40.0-77.0); NUCLEATED RED BLOOD CELLS 0.2 % (0.0-0.19); PLATELET COUNT (AUTO) 84 K/uL (130-400); RED BLOOD CELL COUNT(AUTO) 5.06 MIL/uL (4.50-6.20); RED CELL DISTRIBUTION WIDTH 13.1 % (11.0-15.5); WHITE BLOOD COUNT (AUTO) 18.4 K/uL (4.8-10.8)
[2020-08-18 05:48] LABS: CREATININE 0.8 mg/dL (0.5-1.5); POTASSIUM 4.4 mmol/L (3.5-5.1)
[2020-08-18] MEDS: ENOXAPARIN SODIUM 60 MG/0.6 ML SQ SCH (08:26)
[2020-08-18] MEDS: LANSOPRAZOLE 15 MG SOLU TAB PEG SCH (09:00)
[2020-08-18] MEDS: ZINC SULFATE 220 CAPSULE PO SCH (09:22)
[2020-08-18] MEDS: DEXAMETHASONE SOD PHOSPHATE 4 MG/ML 1ML VIAL IVP SCH ×2 (09:22→21:18)
[2020-08-18] MEDS: SENNOSIDES 8.6 MG TABLET GT SCH (09:22)
[2020-08-18] MEDS: POLYETHYLENE GLYCOL 3350 17 GM POWD.PACK PO SCH (09:23)
[2020-08-18] MEDS: ASCORBIC ACID 500 MG TAB PO SCH (09:23)
[2020-08-18] MEDS: INSULIN GLARGINE 100 UNITS/ML 10 ML VIAL SQ SCH ×2 (09:24→21:29)
[2020-08-19] VITALS (61 sets, daily range): BP systolic 80–181; BP diastolic 51–117
[2020-08-19] MEDS: PROPOFOL 1000 MG/100 ML 100 ML IV SCH ×2 (03:04→21:31)
[2020-08-19 03:08] LABS: ABG BASE EXCESS 2.7 mmol/L (-2.0-3.0); ABG HCO3 27.6 mmol/L (21.0-28.0); ABG OXYGEN SATURATION 96.8 % (95.0-99.0); ABG PCO2 43 mmHg (35-48)
[2020-08-19] MEDS: INSULIN HUMULIN R 100 UNIT/ML 3ML SQ SCH ×6 (06:04→17:42)
[2020-08-19] MEDS: DOCUSATE NA 100MG/10ML UDCUP GT SCH ×3 (06:07→21:36)
[2020-08-19] MEDS: VANCOMYCIN 1G/250ML KIT 250 ML IV SCH ×2 (06:08→17:46)
[2020-08-19 06:48] LABS: BASOPHILS % (AUTO) 0.1 % (0.0-5.0); HEMATOCRIT 47.9 % (42-54); LYMPHOCYTES % (AUTO) 2.9 % (21.0-51.0); MEAN CORPUSCULAR HEMOGLOBIN 30.1 pg (27.0-33.0); MEAN CORPUSCULAR HGB CONC 30.7 g/dL (32.0-36.0); MEAN CORPUSCULAR VOLUME 98.2 fL (79-99); MONOCYTES % (AUTO) 2.9 % (3.0-13.0); NEUTROPHILS % (AUTO) 93.1 % (40.0-77.0); NUCLEATED RED BLOOD CELLS 0.1 % (0.0-0.19); PLATELET COUNT (AUTO) 117 K/uL (130-400); RED BLOOD CELL COUNT(AUTO) 4.88 MIL/uL (4.50-6.20); RED CELL DISTRIBUTION WIDTH 13.3 % (11.0-15.5); WHITE BLOOD COUNT (AUTO) 15.6 K/uL (4.8-10.8)
[2020-08-19 06:55] LABS: CREATININE 0.5 mg/dL (0.5-1.5)
[2020-08-19] MEDS: LANSOPRAZOLE 15 MG SOLU TAB PEG SCH (09:00)
[2020-08-19] MEDS: DEXTROSE 5%-WATER 1,000 ML IV SCH ×2 (09:15→21:36)
[2020-08-19] MEDS: CETIRIZINE HCL 5 MG TABLET PO SCH (09:20)
[2020-08-19] MEDS: POLYETHYLENE GLYCOL 3350 17 GM POWD.PACK PO SCH (10:39)
[2020-08-19] MEDS: SENNOSIDES 8.6 MG TABLET GT SCH (10:39)
[2020-08-19] MEDS: ZINC SULFATE 220 CAPSULE PO SCH (10:39)
[2020-08-19] MEDS: DEXAMETHASONE SOD PHOSPHATE 4 MG/ML 1ML VIAL IVP SCH ×2 (10:40→21:27)
[2020-08-19] MEDS: INSULIN GLARGINE 100 UNITS/ML 10 ML VIAL SQ SCH ×2 (10:42→21:29)
[2020-08-19] MEDS: FLUTICASONE PROPIONATE 50MCG/SPRAY 16 GM BOTTLE EN SCH (12:45)
[2020-08-19] MEDS: METOPROLOL TARTRATE 25 MG TAB PO SCH (21:28)
[2020-08-20] VITALS (61 sets, daily range): BP systolic 81–170; BP diastolic 49–107
[2020-08-20] MEDS: INSULIN HUMULIN R 100 UNIT/ML 3ML SQ SCH ×8 (00:04→23:21)
[2020-08-20] MEDS: FLUTICASONE PROPIONATE 50MCG/SPRAY 16 GM BOTTLE EN SCH ×3 (00:45→23:29)
[2020-08-20] MEDS ORDERED: DEXTROSE 5%-WATER 500 ML IV ONE (02:34)
[2020-08-20 03:26] LABS: ABG BASE EXCESS 4.7 mmol/L (-2.0-3.0); ABG HCO3 28.2 mmol/L (21.0-28.0); ABG OXYGEN SATURATION 92.6 % (95.0-99.0); ABG PCO2 38 mmHg (35-48)
[2020-08-20] MEDS: VANCOMYCIN 1G/250ML KIT 250 ML IV SCH ×2 (05:00→18:08)
[2020-08-20] MEDS: DOCUSATE NA 100MG/10ML UDCUP GT SCH ×3 (05:01→21:35)
[2020-08-20 06:39] LABS: BASOPHILS % (AUTO) 0.2 % (0.0-5.0); HEMATOCRIT 47.7 % (42-54); LYMPHOCYTES % (AUTO) 2.1 % (21.0-51.0); MEAN CORPUSCULAR HEMOGLOBIN 30.8 pg (27.0-33.0); MEAN CORPUSCULAR HGB CONC 32.1 g/dL (32.0-36.0); MONOCYTES % (AUTO) 2.6 % (3.0-13.0); NEUTROPHILS % (AUTO) 94.2 % (40.0-77.0); NUCLEATED RED BLOOD CELLS 0.1 % (0.0-0.19); PLATELET COUNT (AUTO) 120 K/uL (130-400); RED BLOOD CELL COUNT(AUTO) 4.97 MIL/uL (4.50-6.20); RED CELL DISTRIBUTION WIDTH 13.2 % (11.0-15.5)
[2020-08-20 06:52] LABS: CREATININE 0.7 mg/dL (0.5-1.5); POTASSIUM 4.7 mmol/L (3.5-5.1)
[2020-08-20] MEDS ORDERED: FLUTICASONE PROPIONATE 50MCG/SPRAY 16 GM BOTTLE EN SCH (09:00)
[2020-08-20] MEDS: LANSOPRAZOLE 15 MG SOLU TAB PEG SCH (09:00)
[2020-08-20] MEDS: METOPROLOL TARTRATE 25 MG TAB PO SCH ×2 (09:00→21:19)
[2020-08-20] MEDS: POLYETHYLENE GLYCOL 3350 17 GM POWD.PACK PO SCH (09:40)
[2020-08-20] MEDS: DEXAMETHASONE SOD PHOSPHATE 4 MG/ML 1ML VIAL IVP SCH ×2 (09:40→21:19)
[2020-08-20] MEDS: CETIRIZINE HCL 5 MG TABLET PO SCH (09:40)
[2020-08-20] MEDS: ZINC SULFATE 220 CAPSULE PO SCH (09:40)
[2020-08-20] MEDS: SENNOSIDES 8.6 MG TABLET GT SCH (09:40)
[2020-08-20] MEDS: INSULIN GLARGINE 100 UNITS/ML 10 ML VIAL SQ SCH ×2 (09:42→21:34)
[2020-08-20] MEDS: DEXTROSE 5%-WATER 1,000 ML IV SCH ×2 (13:36→22:36)
[2020-08-20] MEDS: PROPOFOL 1000 MG/100 ML 100 ML IV SCH ×2 (14:43→23:19)
[2020-08-21] VITALS (33 sets, daily range): BP systolic 77–164; BP diastolic 41–99
[2020-08-21] MEDS: VANCOMYCIN 1G/250ML KIT 250 ML IV SCH ×2 (05:06→18:10)
[2020-08-21] MEDS: DOCUSATE NA 100MG/10ML UDCUP GT SCH ×3 (05:06→21:41)
[2020-08-21 06:39] LABS: BASOPHILS % (AUTO) 0.1 % (0.0-5.0); HEMATOCRIT 47.4 % (42-54); LYMPHOCYTES % (AUTO) 2.2 % (21.0-51.0); MEAN CORPUSCULAR HEMOGLOBIN 30.9 pg (27.0-33.0); MEAN CORPUSCULAR HGB CONC 31.9 g/dL (32.0-36.0); MEAN CORPUSCULAR VOLUME 96.9 fL (79-99); MONOCYTES % (AUTO) 1.6 % (3.0-13.0); NEUTROPHILS % (AUTO) 95.3 % (40.0-77.0); NUCLEATED RED BLOOD CELLS 0.1 % (0.0-0.19); PLATELET COUNT (AUTO) 84 K/uL (130-400); RED BLOOD CELL COUNT(AUTO) 4.89 MIL/uL (4.50-6.20); RED CELL DISTRIBUTION WIDTH 13.4 % (11.0-15.5); WHITE BLOOD COUNT (AUTO) 17.7 K/uL (4.8-10.8)
[2020-08-21] MEDS: INSULIN HUMULIN R 100 UNIT/ML 3ML SQ SCH ×6 (06:42→18:11)
[2020-08-21 06:45] LABS: CREATININE 0.7 mg/dL (0.5-1.5); CRP QUANTITATIVE 46.7 mg/L (0.00-9.0); POTASSIUM 4.9 mmol/L (3.5-5.1)
[2020-08-21] MEDS: DEXAMETHASONE SOD PHOSPHATE 4 MG/ML 1ML VIAL IVP SCH ×2 (09:05→21:30)
[2020-08-21] MEDS: SENNOSIDES 8.6 MG TABLET GT SCH (09:05)
[2020-08-21] MEDS: METOPROLOL TARTRATE 25 MG TAB PO SCH ×2 (09:06→21:30)
[2020-08-21] MEDS: LANSOPRAZOLE 15 MG SOLU TAB PEG SCH (09:06)
[2020-08-21] MEDS: ZINC SULFATE 220 CAPSULE PO SCH (09:06)
[2020-08-21] MEDS: CETIRIZINE HCL 5 MG TABLET PO SCH (09:17)
[2020-08-21] MEDS: POLYETHYLENE GLYCOL 3350 17 GM POWD.PACK PO SCH (09:18)
[2020-08-21] MEDS: DEXTROSE 5%-WATER 1,000 ML IV SCH (11:35)
[2020-08-21] MEDS: FLUTICASONE PROPIONATE 50MCG/SPRAY 16 GM BOTTLE EN SCH (11:35)
[2020-08-21] MEDS: FENTANYL 2500MCG+NS 250ML 250 ML IV SCH (13:35)
[2020-08-21] MEDS: ARTIFICAL TEARS SOL 15 ML OU SCH ×2 (18:09→21:32)
[2020-08-21] MEDS: PROPOFOL 1000 MG/100 ML 100 ML IV SCH (21:28)
[2020-08-21] MEDS: INSULIN GLARGINE 100 UNITS/ML 10 ML VIAL SQ SCH (21:29)
[2020-08-22] VITALS (42 sets, daily range): BP systolic 78–169; BP diastolic 54–99
[2020-08-22] MEDS: FLUTICASONE PROPIONATE 50MCG/SPRAY 16 GM BOTTLE EN SCH ×2 (00:45→12:35)
[2020-08-22] MEDS: INSULIN HUMULIN R 100 UNIT/ML 3ML SQ SCH ×6 (01:27→17:22)
[2020-08-22 03:22] LABS: ABG BASE EXCESS 1.7 mmol/L (-2.0-3.0); ABG HCO3 25.9 mmol/L (21.0-28.0); ABG OXYGEN SATURATION 95.7 % (95.0-99.0); ABG PCO2 40 mmHg (35-48)
[2020-08-22] MEDS: DEXTROSE 5%-WATER 1,000 ML IV SCH (03:55)
[2020-08-22] MEDS: VANCOMYCIN 1G/250ML KIT 250 ML IV SCH ×2 (05:11→17:34)
[2020-08-22] MEDS: ARTIFICAL TEARS SOL 15 ML OU SCH ×4 (05:13→21:06)
[2020-08-22] MEDS: DOCUSATE NA 100MG/10ML UDCUP GT SCH ×3 (05:13→22:27)
[2020-08-22 05:40] LABS: BASOPHILS % (AUTO) 0.1 % (0.0-5.0); HEMATOCRIT 42.2 % (42-54); LYMPHOCYTES % (AUTO) 1.3 % (21.0-51.0); MEAN CORPUSCULAR HEMOGLOBIN 31.3 pg (27.0-33.0); MEAN CORPUSCULAR HGB CONC 32.5 g/dL (32.0-36.0); MEAN CORPUSCULAR VOLUME 96.3 fL (79-99); MONOCYTES % (AUTO) 1.3 % (3.0-13.0); NEUTROPHILS % (AUTO) 96.5 % (40.0-77.0); PLATELET COUNT (AUTO) 94 K/uL (130-400); RED BLOOD CELL COUNT(AUTO) 4.38 MIL/uL (4.50-6.20); RED CELL DISTRIBUTION WIDTH 13.5 % (11.0-15.5); WHITE BLOOD COUNT (AUTO) 13.8 K/uL (4.8-10.8)
[2020-08-22 05:56] LABS: CREATININE 0.5 mg/dL (0.5-1.5); CRP QUANTITATIVE 46.2 mg/L (0.00-9.0); POTASSIUM 4.5 mmol/L (3.5-5.1)
[2020-08-22] MEDS: PROPOFOL 1000 MG/100 ML 100 ML IV SCH ×3 (07:20→22:24)
[2020-08-22] MEDS: SENNOSIDES 8.6 MG TABLET GT SCH (09:48)
[2020-08-22] MEDS: METOPROLOL TARTRATE 25 MG TAB PO SCH ×2 (09:48→21:07)
[2020-08-22] MEDS: ZINC SULFATE 220 CAPSULE PO SCH (09:48)
[2020-08-22] MEDS: LANSOPRAZOLE 15 MG SOLU TAB PEG SCH (09:48)
[2020-08-22] MEDS: POLYETHYLENE GLYCOL 3350 17 GM POWD.PACK PO SCH (09:49)
[2020-08-22] MEDS: DEXAMETHASONE SOD PHOSPHATE 4 MG/ML 1ML VIAL IVP SCH ×2 (09:49→21:07)
[2020-08-22] MEDS: ARTIFICIAL TEARS 3.5 GM OINTMENT OU SCH ×2 (13:15→21:00)
[2020-08-22 16:36] LABS: THYROID STIMULATING HORMONE 2.36 uIU/mL (0.36-3.74)
[2020-08-22] MEDS: ERYTHROMYCIN BASE 0.5% OPHTH OINT 1 GM TUBE OU SCH (16:57)
[2020-08-22] MEDS: FUROSEMIDE 20MG VIAL IVP SCH (21:08)
[2020-08-22] MEDS: INSULIN GLARGINE 100 UNITS/ML 10 ML VIAL SQ SCH (21:21)
[2020-08-23] VITALS (33 sets, daily range): BP systolic 76–165; BP diastolic 42–98
[2020-08-23] MEDS: INSULIN HUMULIN R 100 UNIT/ML 3ML SQ SCH ×7 (00:33→18:00)
[2020-08-23] MEDS: FLUTICASONE PROPIONATE 50MCG/SPRAY 16 GM BOTTLE EN SCH ×2 (00:42→12:39)
[2020-08-23] MEDS: ARTIFICAL TEARS SOL 15 ML OU SCH ×4 (04:08→21:43)
[2020-08-23] MEDS: DOCUSATE NA 100MG/10ML UDCUP GT SCH ×3 (06:26→22:30)
[2020-08-23] MEDS: VANCOMYCIN 1G/250ML KIT 250 ML IV SCH ×2 (06:30→17:30)
[2020-08-23 06:58] LABS: ABG BASE EXCESS 6.3 mmol/L (-2.0-3.0); ABG HCO3 30.1 mmol/L (21.0-28.0); ABG OXYGEN SATURATION 97.7 % (95.0-99.0); ABG PCO2 40 mmHg (35-48)
[2020-08-23 07:15] LABS: BASOPHILS % (AUTO) 0.1 % (0.0-5.0); HEMATOCRIT 44.8 % (42-54); LYMPHOCYTES % (AUTO) 1.3 % (21.0-51.0); MEAN CORPUSCULAR HEMOGLOBIN 30.4 pg (27.0-33.0); MEAN CORPUSCULAR HGB CONC 32.1 g/dL (32.0-36.0); MEAN CORPUSCULAR VOLUME 94.7 fL (79-99); MONOCYTES % (AUTO) 0.9 % (3.0-13.0); NEUTROPHILS % (AUTO) 96.4 % (40.0-77.0); PLATELET COUNT (AUTO) 83 K/uL (130-400); RED BLOOD CELL COUNT(AUTO) 4.73 MIL/uL (4.50-6.20); RED CELL DISTRIBUTION WIDTH 13.6 % (11.0-15.5)
[2020-08-23 07:20] LABS: CREATININE 0.5 mg/dL (0.5-1.5); POTASSIUM 4.9 mmol/L (3.5-5.1)
[2020-08-23] MEDS: ZINC SULFATE 220 CAPSULE PO SCH (09:01)
[2020-08-23] MEDS: POLYETHYLENE GLYCOL 3350 17 GM POWD.PACK PO SCH (09:01)
[2020-08-23] MEDS: METOPROLOL TARTRATE 25 MG TAB PO SCH ×2 (09:01→21:44)
[2020-08-23] MEDS: DEXAMETHASONE SOD PHOSPHATE 4 MG/ML 1ML VIAL IVP SCH ×2 (09:01→21:43)
[2020-08-23] MEDS: SENNOSIDES 8.6 MG TABLET GT SCH (09:01)
[2020-08-23] MEDS: LANSOPRAZOLE 15 MG SOLU TAB PEG SCH (09:01)
[2020-08-23] MEDS: FUROSEMIDE 20MG VIAL IVP SCH (09:02)
[2020-08-23] MEDS: ARTIFICIAL TEARS 3.5 GM OINTMENT OU SCH ×2 (09:02→21:44)
[2020-08-23] MEDS: ALBUMIN (HUMAN) 25% 50 ML IV SCH ×2 (12:38→20:16)
[2020-08-23] MEDS: ERYTHROMYCIN BASE 0.5% OPHTH OINT 1 GM TUBE OU SCH (16:37)
[2020-08-23] MEDS: FUROSEMIDE 40MG VIAL IVP SCH (17:29)
[2020-08-23] MEDS: PROPOFOL 1000 MG/100 ML 100 ML IV SCH (20:15)
[2020-08-23] MEDS ORDERED: FENTANYL 2500MCG+NS 250ML 250 ML IV ONE (20:37)
[2020-08-23] MEDS: INSULIN GLARGINE 100 UNITS/ML 10 ML VIAL SQ SCH (22:29)
[2020-08-24] VITALS (29 sets, daily range): BP systolic 93–173; BP diastolic 62–105
[2020-08-24] MEDS: FLUTICASONE PROPIONATE 50MCG/SPRAY 16 GM BOTTLE EN SCH ×2 (02:30→12:45)
[2020-08-24] MEDS: ARTIFICAL TEARS SOL 15 ML OU SCH ×4 (02:32→20:26)
[2020-08-24] MEDS: INSULIN HUMULIN R 100 UNIT/ML 3ML SQ SCH ×8 (02:35→23:32)
[2020-08-24] MEDS ORDERED: ALBUMIN (HUMAN) 25% 100 ML IV ONE (02:39)
[2020-08-24] MEDS: FUROSEMIDE 40MG VIAL IVP SCH ×3 (02:40→16:31)
[2020-08-24] MEDS: ALBUMIN (HUMAN) 25% 50 ML IV SCH ×3 (02:41→19:45)
[2020-08-24] MEDS: DOCUSATE NA 100MG/10ML UDCUP GT SCH ×3 (05:08→21:37)
[2020-08-24] MEDS: VANCOMYCIN 1G/250ML KIT 250 ML IV SCH ×2 (05:10→17:30)
[2020-08-24 06:11] LABS: BASOPHILS % (AUTO) 0.2 % (0.0-5.0); EOSINOPHILS % (AUTO) 0.1 % (0.0-8.0); HEMATOCRIT 43.8 % (42-54); LYMPHOCYTES % (AUTO) 1.5 % (21.0-51.0); MEAN CORPUSCULAR HEMOGLOBIN 30.8 pg (27.0-33.0); MEAN CORPUSCULAR HGB CONC 32.2 g/dL (32.0-36.0); MEAN CORPUSCULAR VOLUME 95.6 fL (79-99); MONOCYTES % (AUTO) 0.9 % (3.0-13.0); NEUTROPHILS % (AUTO) 96.7 % (40.0-77.0); PLATELET COUNT (AUTO) 56 K/uL (130-400); RED BLOOD CELL COUNT(AUTO) 4.58 MIL/uL (4.50-6.20); RED CELL DISTRIBUTION WIDTH 13.9 % (11.0-15.5); WHITE BLOOD COUNT (AUTO) 11.8 K/uL (4.8-10.8)
[2020-08-24 06:22] LABS: ALBUMIN 2.3 g/dL (3.5-5.0); BILIRUBIN,TOTAL 1.1 mg/dL (0.2-1.0); CREATININE 0.6 mg/dL (0.5-1.5); CRP QUANTITATIVE 57.6 mg/L (0.00-9.0); TOTAL PROTEIN, SERUM 5.6 g/dL (6.0-8.3)
[2020-08-24] MEDS ORDERED: PHARMACY COMMUNICATION MISC SCH (08:15)
[2020-08-24 08:42] LABS: ABG BASE EXCESS 8.8 mmol/L (-2.0-3.0); ABG HCO3 32.7 mmol/L (21.0-28.0); ABG OXYGEN SATURATION 92.4 % (95.0-99.0); ABG PCO2 42 mmHg (35-48)
[2020-08-24] MEDS: POLYETHYLENE GLYCOL 3350 17 GM POWD.PACK PO SCH (08:43)
[2020-08-24] MEDS: ZINC SULFATE 220 CAPSULE PO SCH (08:43)
[2020-08-24] MEDS: METOPROLOL TARTRATE 25 MG TAB PO SCH ×2 (08:44→21:37)
[2020-08-24] MEDS: DEXAMETHASONE SOD PHOSPHATE 4 MG/ML 1ML VIAL IVP SCH ×2 (08:44→21:38)
[2020-08-24] MEDS: LANSOPRAZOLE 15 MG SOLU TAB PEG SCH (08:44)
[2020-08-24] MEDS: SENNOSIDES 8.6 MG TABLET GT SCH (08:44)
[2020-08-24] MEDS: ARTIFICIAL TEARS 3.5 GM OINTMENT OU SCH ×2 (08:45→20:26)
[2020-08-24] MEDS ORDERED: AMLODIPINE 5 MG TAB PO SCH (10:45)
[2020-08-24] MEDS ORDERED: DEXMEDETOMIDINE HCL 200 MCG in 0.9%NACL 50ML 50 ML IV SCH (11:30)
[2020-08-24] MEDS: DEXMEDETOMIDINE HCL 400 MCG in 0.9%NACL 100ML 100 ML IV SCH ×2 (14:00→17:12)
[2020-08-24] MEDS: ERYTHROMYCIN BASE 0.5% OPHTH OINT 1 GM TUBE OU SCH (16:31)
[2020-08-25] VITALS (32 sets, daily range): BP systolic 81–164; BP diastolic 46–94
[2020-08-25] MEDS: FLUTICASONE PROPIONATE 50MCG/SPRAY 16 GM BOTTLE EN SCH (00:07)
[2020-08-25] MEDS: FUROSEMIDE 40MG VIAL IVP SCH ×3 (00:10→16:04)
[2020-08-25] MEDS: DEXMEDETOMIDINE HCL 400 MCG in 0.9%NACL 100ML 100 ML IV SCH ×3 (00:25→19:27)
[2020-08-25] MEDS: ARTIFICAL TEARS SOL 15 ML OU SCH ×2 (03:02→08:45)
[2020-08-25 04:00] LABS: CRP QUANTITATIVE 72.1 mg/L (0.00-9.0)
[2020-08-25] MEDS: VANCOMYCIN 1G/250ML KIT 250 ML IV SCH ×2 (04:54→17:42)
[2020-08-25] MEDS: ALBUMIN (HUMAN) 25% 50 ML IV SCH ×3 (04:54→20:53)
[2020-08-25] MEDS: DOCUSATE NA 100MG/10ML UDCUP GT SCH ×3 (04:55→20:55)
[2020-08-25 05:06] LABS: BASOPHILS % (AUTO) 0.2 % (0.0-5.0); EOSINOPHILS % (AUTO) 0.1 % (0.0-8.0); HEMATOCRIT 43.3 % (42-54); LYMPHOCYTES % (AUTO) 1.9 % (21.0-51.0); MEAN CORPUSCULAR HEMOGLOBIN 30.8 pg (27.0-33.0); MEAN CORPUSCULAR HGB CONC 32.8 g/dL (32.0-36.0); MEAN CORPUSCULAR VOLUME 93.9 fL (79-99); MONOCYTES % (AUTO) 0.9 % (3.0-13.0); NEUTROPHILS % (AUTO) 96.5 % (40.0-77.0); PLATELET COUNT (AUTO) 108 K/uL (130-400); RED BLOOD CELL COUNT(AUTO) 4.61 MIL/uL (4.50-6.20); RED CELL DISTRIBUTION WIDTH 13.9 % (11.0-15.5); WHITE BLOOD COUNT (AUTO) 11.4 K/uL (4.8-10.8)
[2020-08-25 05:08] LABS: ABG BASE EXCESS 7.7 mmol/L (-2.0-3.0); ABG HCO3 30.5 mmol/L (21.0-28.0); ABG OXYGEN SATURATION 87.7 % (95.0-99.0); ABG PCO2 37 mmHg (35-48)
[2020-08-25 05:13] LABS: ALBUMIN 2.6 g/dL (3.5-5.0); BILIRUBIN,TOTAL 1.2 mg/dL (0.2-1.0); CREATININE 0.6 mg/dL (0.5-1.5); POTASSIUM 3.6 mmol/L (3.5-5.1); TOTAL PROTEIN, SERUM 5.8 g/dL (6.0-8.3)
[2020-08-25] MEDS: INSULIN HUMULIN R 100 UNIT/ML 3ML SQ SCH ×6 (05:30→17:21)
[2020-08-25] MEDS ORDERED: PHARMACY COMMUNICATION MISC SCH (08:15)
[2020-08-25 08:37] LABS: ABG HCO3 31.3 mmol/L (21.0-28.0); ABG OXYGEN SATURATION 95.2 % (95.0-99.0); ABG PCO2 39 mmHg (35-48)
[2020-08-25] MEDS: SENNOSIDES 8.6 MG TABLET GT SCH (09:00)
[2020-08-25] MEDS: LANSOPRAZOLE 15 MG SOLU TAB PEG SCH (09:40)
[2020-08-25] MEDS: DEXAMETHASONE SOD PHOSPHATE 4 MG/ML 1ML VIAL IVP SCH ×2 (09:40→20:54)
[2020-08-25] MEDS: POTASSIUM CHLORIDE 10% ELIXIR 20 MEQ/15 ML UDCUP PO PRN (09:40)
[2020-08-25] MEDS: POLYETHYLENE GLYCOL 3350 17 GM POWD.PACK PO SCH (09:41)
[2020-08-25] MEDS: ARTIFICIAL TEARS 3.5 GM OINTMENT OU SCH ×2 (09:42→20:55)
[2020-08-25] MEDS: METOPROLOL TARTRATE 25 MG TAB PO SCH ×2 (09:42→20:54)
[2020-08-25] MEDS: ZINC SULFATE 220 CAPSULE PO SCH (09:42)
[2020-08-25 10:26] LABS: ABG BASE EXCESS 8.6 mmol/L (-2.0-3.0); ABG HCO3 31.9 mmol/L (21.0-28.0); ABG OXYGEN SATURATION 96.2 % (95.0-99.0); ABG PCO2 39 mmHg (35-48)
[2020-08-25] MEDS: ERYTHROMYCIN BASE 0.5% OPHTH OINT 1 GM TUBE OU SCH (16:04)
[2020-08-25] MEDS: MORPHINE 2 MG SYG IVP PRN (16:05)
[2020-08-25] MEDS: INSULIN GLARGINE 100 UNITS/ML 10 ML VIAL SQ SCH (21:00)
[2020-08-26] VITALS (30 sets, daily range): BP systolic 86–179; BP diastolic 39–101
[2020-08-26] MEDS: INSULIN HUMULIN R 100 UNIT/ML 3ML SQ SCH ×7 (00:06→17:23)
[2020-08-26] MEDS: FUROSEMIDE 40MG VIAL IVP SCH ×3 (01:05→17:00)
[2020-08-26] MEDS: DEXMEDETOMIDINE HCL 400 MCG in 0.9%NACL 100ML 100 ML IV SCH ×5 (03:35→11:00)
[2020-08-26] MEDS: ALBUMIN (HUMAN) 25% 50 ML IV SCH ×3 (04:01→20:00)
[2020-08-26 05:03] LABS: BASOPHILS % (AUTO) 0.1 % (0.0-5.0); HEMATOCRIT 39.5 % (42-54); LYMPHOCYTES % (AUTO) 1.7 % (21.0-51.0); MEAN CORPUSCULAR HEMOGLOBIN 31.1 pg (27.0-33.0); MEAN CORPUSCULAR HGB CONC 32.9 g/dL (32.0-36.0); MEAN CORPUSCULAR VOLUME 94.5 fL (79-99); MONOCYTES % (AUTO) 1.2 % (3.0-13.0); NEUTROPHILS % (AUTO) 96.1 % (40.0-77.0); PLATELET COUNT (AUTO) 100 K/uL (130-400); RED BLOOD CELL COUNT(AUTO) 4.18 MIL/uL (4.50-6.20); RED CELL DISTRIBUTION WIDTH 14.2 % (11.0-15.5); WHITE BLOOD COUNT (AUTO) 10.1 K/uL (4.8-10.8)
[2020-08-26 05:13] LABS: ALBUMIN 2.6 g/dL (3.5-5.0); BILIRUBIN,TOTAL 1.4 mg/dL (0.2-1.0); CREATININE 0.8 mg/dL (0.5-1.5); CRP QUANTITATIVE 89.7 mg/L (0.00-9.0); POTASSIUM 3.9 mmol/L (3.5-5.1); TOTAL PROTEIN, SERUM 5.5 g/dL (6.0-8.3)
[2020-08-26] MEDS: DOCUSATE NA 100MG/10ML UDCUP GT SCH ×3 (06:38→22:17)
[2020-08-26] MEDS: VANCOMYCIN 1G/250ML KIT 250 ML IV SCH ×2 (06:40→17:38)
[2020-08-26 06:55] LABS: ABG BASE EXCESS 6.5 mmol/L (-2.0-3.0); ABG HCO3 29.3 mmol/L (21.0-28.0); ABG OXYGEN SATURATION 91.7 % (95.0-99.0); ABG PCO2 36 mmHg (35-48)
[2020-08-26] MEDS: POLYETHYLENE GLYCOL 3350 17 GM POWD.PACK PO SCH (09:00)
[2020-08-26] MEDS: LANSOPRAZOLE 15 MG SOLU TAB PEG SCH (09:36)
[2020-08-26] MEDS: ZINC SULFATE 220 CAPSULE PO SCH (09:37)
[2020-08-26] MEDS: METOPROLOL TARTRATE 25 MG TAB PO SCH ×2 (09:37→22:17)
[2020-08-26] MEDS: SENNOSIDES 8.6 MG TABLET GT SCH (09:37)
[2020-08-26] MEDS: DEXAMETHASONE SOD PHOSPHATE 4 MG/ML 1ML VIAL IVP SCH ×2 (09:37→22:17)
[2020-08-26] MEDS: POTASSIUM CHLORIDE 10% ELIXIR 20 MEQ/15 ML UDCUP PO PRN (09:37)
[2020-08-26] MEDS: ARTIFICIAL TEARS 3.5 GM OINTMENT OU SCH ×2 (09:38→22:17)
[2020-08-26 11:08] LABS: ABG BASE EXCESS 4.4 mmol/L (-2.0-3.0); ABG HCO3 27.7 mmol/L (21.0-28.0); ABG OXYGEN SATURATION 93.5 % (95.0-99.0); ABG PCO2 37 mmHg (35-48)
[2020-08-26] MEDS: ERYTHROMYCIN BASE 0.5% OPHTH OINT 1 GM TUBE OU SCH (16:00)
[2020-08-26] MEDS: INSULIN GLARGINE 100 UNITS/ML 10 ML VIAL SQ SCH (22:19)
[2020-08-27] VITALS (35 sets, daily range): BP systolic 88–169; BP diastolic 49–98
[2020-08-27] MEDS: FUROSEMIDE 40MG VIAL IVP SCH ×3 (00:41→17:15)
[2020-08-27] MEDS: INSULIN HUMULIN R 100 UNIT/ML 3ML SQ SCH ×8 (00:42→23:36)
[2020-08-27] MEDS: DEXMEDETOMIDINE HCL 400 MCG in 0.9%NACL 100ML 100 ML IV SCH ×5 (01:15→21:35)
[2020-08-27] MEDS: ALBUMIN (HUMAN) 25% 50 ML IV SCH ×3 (04:32→19:39)
[2020-08-27] MEDS: VANCOMYCIN 1G/250ML KIT 250 ML IV SCH ×2 (06:00→17:16)
[2020-08-27] MEDS: DOCUSATE NA 100MG/10ML UDCUP GT SCH ×3 (06:00→20:09)
[2020-08-27 06:18] LABS: BASOPHILS % (AUTO) 0.2 % (0.0-5.0); HEMATOCRIT 39.3 % (42-54); LYMPHOCYTES % (AUTO) 2.5 % (21.0-51.0); MEAN CORPUSCULAR HEMOGLOBIN 30.9 pg (27.0-33.0); MEAN CORPUSCULAR HGB CONC 31.8 g/dL (32.0-36.0); MONOCYTES % (AUTO) 1.1 % (3.0-13.0); NEUTROPHILS % (AUTO) 95.7 % (40.0-77.0); PLATELET COUNT (AUTO) 86 K/uL (130-400); RED BLOOD CELL COUNT(AUTO) 4.05 MIL/uL (4.50-6.20); RED CELL DISTRIBUTION WIDTH 14.4 % (11.0-15.5); WHITE BLOOD COUNT (AUTO) 8.1 K/uL (4.8-10.8)
[2020-08-27 06:25] LABS: BILIRUBIN,TOTAL 1.3 mg/dL (0.2-1.0); CREATININE 0.8 mg/dL (0.5-1.5); POTASSIUM 3.7 mmol/L (3.5-5.1); TOTAL PROTEIN, SERUM 5.9 g/dL (6.0-8.3)
[2020-08-27 07:31] LABS: ABG BASE EXCESS 8.3 mmol/L (-2.0-3.0); ABG HCO3 32.6 mmol/L (21.0-28.0); ABG OXYGEN SATURATION 93.8 % (95.0-99.0); ABG PCO2 44 mmHg (35-48)
[2020-08-27] MEDS: METOPROLOL TARTRATE 25 MG TAB PO SCH ×2 (09:00→20:09)
[2020-08-27] MEDS: ZINC SULFATE 220 CAPSULE PO SCH (09:00)
[2020-08-27] MEDS: SENNOSIDES 8.6 MG TABLET GT SCH (09:00)
[2020-08-27] MEDS: LANSOPRAZOLE 15 MG SOLU TAB PEG SCH (09:00)
[2020-08-27] MEDS: POLYETHYLENE GLYCOL 3350 17 GM POWD.PACK PO SCH (09:00)
[2020-08-27] MEDS: DEXAMETHASONE SOD PHOSPHATE 4 MG/ML 1ML VIAL IVP SCH ×2 (09:59→20:08)
[2020-08-27] MEDS: ARTIFICIAL TEARS 3.5 GM OINTMENT OU SCH ×2 (09:59→20:08)
[2020-08-27] MEDS ORDERED: PROPOFOL 10 MG/ML 20ML VIAL IV ONE (15:02)
[2020-08-27] MEDS ORDERED: MIDAZOLAM HCL 1 MG/ML 2ML VIAL ONE (15:02)
[2020-08-27] MEDS ORDERED: ROCURONIUM 10MG/1ML SYR 10 MG/ML ML ONE ×2 (15:02→16:35)
[2020-08-27] MEDS ORDERED: LIDOCAINE HCL 1% MDV 50ML VIAL ONE (15:16)
[2020-08-27] MEDS ORDERED: BUPIVACAINE/EPI/PF 0.5% 30ML VIAL IJ ONE (15:21)
[2020-08-27] MEDS ORDERED: 0.9% NACL 500ML IV.SOLN 500 ML IV ONE (15:27)
[2020-08-27] MEDS: ERYTHROMYCIN BASE 0.5% OPHTH OINT 1 GM TUBE OU SCH ×2 (16:00→17:33)
[2020-08-27] MEDS: INSULIN GLARGINE 100 UNITS/ML 10 ML VIAL SQ SCH (20:09)
[2020-08-27] MEDS: MORPHINE 2 MG SYG IVP PRN (20:13)
[2020-08-28] VITALS (35 sets, daily range): BP systolic 68–151; BP diastolic 51–92
[2020-08-28] MEDS: DEXMEDETOMIDINE HCL 400 MCG in 0.9%NACL 100ML 100 ML IV SCH ×4 (01:15→17:12)
[2020-08-28] MEDS: FUROSEMIDE 40MG VIAL IVP SCH ×3 (01:32→17:07)
[2020-08-28 04:02] LABS: MAGNESIUM 2.2 mg/dL (1.80-2.40)
[2020-08-28] MEDS: ALBUMIN (HUMAN) 25% 50 ML IV SCH ×3 (04:52→19:56)
[2020-08-28] MEDS: VANCOMYCIN 1G/250ML KIT 250 ML IV SCH ×2 (05:31→17:10)
[2020-08-28] MEDS: DOCUSATE NA 100MG/10ML UDCUP GT SCH ×3 (05:31→19:57)
[2020-08-28] MEDS: INSULIN HUMULIN R 100 UNIT/ML 3ML SQ SCH ×6 (05:32→17:10)
[2020-08-28 05:47] LABS: BASOPHILS % (AUTO) 0.1 % (0.0-5.0); EOSINOPHILS % (AUTO) 0.1 % (0.0-8.0); HEMATOCRIT 40.9 % (42-54); LYMPHOCYTES % (AUTO) 4.1 % (21.0-51.0); MEAN CORPUSCULAR HEMOGLOBIN 31.2 pg (27.0-33.0); MEAN CORPUSCULAR HGB CONC 32.3 g/dL (32.0-36.0); MEAN CORPUSCULAR VOLUME 96.7 fL (79-99); MONOCYTES % (AUTO) 2.1 % (3.0-13.0); NEUTROPHILS % (AUTO) 92.5 % (40.0-77.0); PLATELET COUNT (AUTO) 94 K/uL (130-400); RED BLOOD CELL COUNT(AUTO) 4.23 MIL/uL (4.50-6.20); RED CELL DISTRIBUTION WIDTH 14.5 % (11.0-15.5); WHITE BLOOD COUNT (AUTO) 7.5 K/uL (4.8-10.8)
[2020-08-28 05:48] LABS: CREATININE 0.7 mg/dL (0.5-1.5); POTASSIUM 3.4 mmol/L (3.5-5.1)
[2020-08-28] MEDS: METOPROLOL TARTRATE 25 MG TAB PO SCH ×2 (07:30→19:56)
[2020-08-28] MEDS: LANSOPRAZOLE 15 MG SOLU TAB PEG SCH (07:30)
[2020-08-28] MEDS: ZINC SULFATE 220 CAPSULE PO SCH (07:30)
[2020-08-28] MEDS: POLYETHYLENE GLYCOL 3350 17 GM POWD.PACK PO SCH (07:30)
[2020-08-28] MEDS: SENNOSIDES 8.6 MG TABLET GT SCH (07:30)
[2020-08-28] MEDS: DEXAMETHASONE SOD PHOSPHATE 4 MG/ML 1ML VIAL IVP SCH ×2 (08:04→19:56)
[2020-08-28] MEDS: ARTIFICIAL TEARS 3.5 GM OINTMENT OU SCH ×2 (10:01→19:56)
[2020-08-28] MEDS: MORPHINE 2 MG SYG IVP PRN (14:57)
[2020-08-28] MEDS: ERYTHROMYCIN BASE 0.5% OPHTH OINT 1 GM TUBE OU SCH (17:12)
[2020-08-28] MEDS: INSULIN GLARGINE 100 UNITS/ML 10 ML VIAL SQ SCH (19:57)
[2020-08-29] VITALS (23 sets, daily range): BP systolic 67–151; BP diastolic 45–85
[2020-08-29] MEDS: INSULIN HUMULIN R 100 UNIT/ML 3ML SQ SCH ×7 (00:41→18:29)
[2020-08-29] MEDS: FUROSEMIDE 40MG VIAL IVP SCH ×3 (00:41→16:38)
[2020-08-29] MEDS: DEXMEDETOMIDINE HCL 400 MCG in 0.9%NACL 100ML 100 ML IV SCH ×2 (00:42→18:30)
[2020-08-29] MEDS: ALBUMIN (HUMAN) 25% 50 ML IV SCH ×3 (04:04→21:39)
[2020-08-29 04:32] LABS: CRP QUANTITATIVE 71.3 mg/L (0.00-9.0)
[2020-08-29 04:43] LABS: MAGNESIUM 2.4 mg/dL (1.80-2.40)
[2020-08-29] MEDS: DOCUSATE NA 100MG/10ML UDCUP GT SCH ×3 (06:00→21:40)
[2020-08-29] MEDS: VANCOMYCIN 1G/250ML KIT 250 ML IV SCH ×2 (06:10→18:28)
[2020-08-29 07:24] LABS: ABG BASE EXCESS 6.3 mmol/L (-2.0-3.0); ABG HCO3 29.9 mmol/L (21.0-28.0); ABG OXYGEN SATURATION 93.4 % (95.0-99.0); ABG PCO2 39 mmHg (35-48)
[2020-08-29] MEDS ORDERED: PROPOFOL 10 MG/ML 20ML VIAL IV ONE (07:48)
[2020-08-29] MEDS ORDERED: SUCCINYLCHOLINE CHLORIDE 20 MG/ML 10 ML VIAL ONE (07:48)
[2020-08-29] MEDS ORDERED: LIDOCAINE PF 100MG/5ML (2%) SYRINGE 5ML ONE (07:48)
[2020-08-29] MEDS ORDERED: NOREPINEPHRIN 4MG/NS 250ML 250 ML IV ONE (08:37)
[2020-08-29] MEDS: SENNOSIDES 8.6 MG TABLET GT SCH ×2 (09:00→10:00)
[2020-08-29] MEDS: LANSOPRAZOLE 15 MG SOLU TAB PEG SCH ×2 (09:00→10:00)
[2020-08-29] MEDS: ZINC SULFATE 220 CAPSULE PO SCH ×2 (09:00→10:00)
[2020-08-29] MEDS: METOPROLOL TARTRATE 25 MG TAB PO SCH ×2 (09:00→21:40)
[2020-08-29] MEDS: POLYETHYLENE GLYCOL 3350 17 GM POWD.PACK PO SCH ×2 (09:00→10:00)
[2020-08-29] MEDS: ARTIFICIAL TEARS 3.5 GM OINTMENT OU SCH ×2 (10:00→21:44)
[2020-08-29] MEDS: DEXAMETHASONE SOD PHOSPHATE 4 MG/ML 1ML VIAL IVP SCH ×2 (10:00→21:40)
[2020-08-29 10:26] LABS: BASOPHILS % (AUTO) 0.1 % (0.0-5.0); EOSINOPHILS % (AUTO) 2.7 % (0.0-8.0); HEMATOCRIT 44.3 % (42-54); LYMPHOCYTES % (AUTO) 4.2 % (21.0-51.0); MEAN CORPUSCULAR HEMOGLOBIN 31.5 pg (27.0-33.0); MEAN CORPUSCULAR HGB CONC 31.8 g/dL (32.0-36.0); MEAN CORPUSCULAR VOLUME 99.1 fL (79-99); MONOCYTES % (AUTO) 2.6 % (3.0-13.0); NEUTROPHILS % (AUTO) 89.5 % (40.0-77.0); PLATELET COUNT (AUTO) 106 K/uL (130-400); RED BLOOD CELL COUNT(AUTO) 4.47 MIL/uL (4.50-6.20); RED CELL DISTRIBUTION WIDTH 14.6 % (11.0-15.5); WHITE BLOOD COUNT (AUTO) 6.9 K/uL (4.8-10.8)
[2020-08-29 10:28] LABS: ALBUMIN 3.6 g/dL (3.5-5.0); BILIRUBIN,TOTAL 3.6 mg/dL (0.2-1.0); CREATININE 0.7 mg/dL (0.5-1.5); TOTAL PROTEIN, SERUM 6.5 g/dL (6.0-8.3)
[2020-08-29] MEDS ORDERED: NOREPINEPHRIN 4MG/NS 250ML 250 ML IV SCH (10:45)
[2020-08-29] MEDS: POTASSIUM CHLORIDE 10MEQ/100ML 100 ML IV PRN ×4 (11:55→23:10)
[2020-08-29] MEDS ORDERED: PHARMACY COMMUNICATION MISC SCH (14:45)
[2020-08-29 16:07] LABS: CREATININE 0.8 mg/dL (0.5-1.5); POTASSIUM 3.2 mmol/L (3.5-5.1)
[2020-08-29 16:11] LABS: INR 1.21 (0.85-1.15)
[2020-08-29 16:13] LABS: PARTIAL THROMBOPLASTIN TIME 25.4 SEC (26.3-35.5)
[2020-08-29] MEDS: ERYTHROMYCIN BASE 0.5% OPHTH OINT 1 GM TUBE OU SCH (16:36)
[2020-08-29] MEDS: FLUCONAZOLE 400 MG/NS 200 ML 200 ML IV SCH (16:36)
[2020-08-29] MEDS: POTASSIUM CHLORIDE 10% ELIXIR 20 MEQ/15 ML UDCUP PO PRN ×2 (16:37→22:03)
[2020-08-29] MEDS ORDERED: DEXTROSE 5%-WATER 500 ML IV ONE (19:15)
[2020-08-29 19:53] LABS: CREATININE 0.8 mg/dL (0.5-1.5); MAGNESIUM 2.3 mg/dL (1.80-2.40); POTASSIUM 3.2 mmol/L (3.5-5.1)
[2020-08-29] MEDS: INSULIN GLARGINE 100 UNITS/ML 10 ML VIAL SQ SCH (21:42)
[2020-08-30] VITALS (31 sets, daily range): BP systolic 108–163; BP diastolic 62–109
[2020-08-30] MEDS: INSULIN HUMULIN R 100 UNIT/ML 3ML SQ SCH ×8 (00:20→23:52)
[2020-08-30] MEDS: FUROSEMIDE 40MG VIAL IVP SCH ×2 (04:37→17:28)
[2020-08-30 04:57] LABS: BASOPHILS % (AUTO) 0.2 % (0.0-5.0); HEMATOCRIT 42.6 % (42-54); LYMPHOCYTES % (AUTO) 5.7 % (21.0-51.0); MEAN CORPUSCULAR HEMOGLOBIN 30.6 pg (27.0-33.0); MEAN CORPUSCULAR VOLUME 98.6 fL (79-99); MONOCYTES % (AUTO) 2.1 % (3.0-13.0); NEUTROPHILS % (AUTO) 91.7 % (40.0-77.0); PLATELET COUNT (AUTO) 82 K/uL (130-400); RED BLOOD CELL COUNT(AUTO) 4.32 MIL/uL (4.50-6.20); RED CELL DISTRIBUTION WIDTH 14.6 % (11.0-15.5); WHITE BLOOD COUNT (AUTO) 6.1 K/uL (4.8-10.8)
[2020-08-30] MEDS: ALBUMIN (HUMAN) 25% 50 ML IV SCH ×3 (05:09→20:09)
[2020-08-30] MEDS: DOCUSATE NA 100MG/10ML UDCUP GT SCH ×3 (05:10→21:09)
[2020-08-30 05:17] LABS: ALBUMIN 3.3 g/dL (3.5-5.0); BILIRUBIN,TOTAL 1.9 mg/dL (0.2-1.0); CREATININE 0.7 mg/dL (0.5-1.5); CRP QUANTITATIVE 56.9 mg/L (0.00-9.0); POTASSIUM 3.5 mmol/L (3.5-5.1); TOTAL PROTEIN, SERUM 6.1 g/dL (6.0-8.3)
[2020-08-30] MEDS: VANCOMYCIN 1G/250ML KIT 250 ML IV SCH ×2 (05:36→17:29)
[2020-08-30] MEDS: MORPHINE 2 MG SYG IVP PRN (05:37)
[2020-08-30 07:18] LABS: ABG BASE EXCESS 3.5 mmol/L (-2.0-3.0); ABG HCO3 27.7 mmol/L (21.0-28.0); ABG OXYGEN SATURATION 96.3 % (95.0-99.0); ABG PCO2 41 mmHg (35-48)
[2020-08-30] MEDS: POLYETHYLENE GLYCOL 3350 17 GM POWD.PACK PO SCH (09:00)
[2020-08-30] MEDS: ZINC SULFATE 220 CAPSULE PO SCH (09:00)
[2020-08-30] MEDS: SENNOSIDES 8.6 MG TABLET GT SCH (09:00)
[2020-08-30] MEDS: METOPROLOL TARTRATE 25 MG TAB PO SCH ×2 (09:00→20:14)
[2020-08-30] MEDS: LANSOPRAZOLE 15 MG SOLU TAB PEG SCH (09:00)
[2020-08-30] MEDS: ARTIFICIAL TEARS 3.5 GM OINTMENT OU SCH ×2 (09:36→20:14)
[2020-08-30] MEDS: POTASSIUM CHLORIDE 10MEQ/100ML 100 ML IV PRN (09:36)
[2020-08-30] MEDS: DEXAMETHASONE SOD PHOSPHATE 4 MG/ML 1ML VIAL IVP SCH ×2 (09:36→20:14)
[2020-08-30] MEDS: DEXMEDETOMIDINE HCL 400 MCG in 0.9%NACL 100ML 100 ML IV SCH ×2 (13:16→14:39)
[2020-08-30] MEDS ORDERED: DEXMEDETOMIDINE HCL 1,000 MCG in 0.9% NACL 250ML 250 ML IV SCH (14:45)
[2020-08-30] MEDS: ERYTHROMYCIN BASE 0.5% OPHTH OINT 1 GM TUBE OU SCH (16:26)
[2020-08-30] MEDS: FLUCONAZOLE 400 MG/NS 200 ML 200 ML IV SCH (16:34)
[2020-08-30 18:30] LABS: ALBUMIN 3.3 g/dL (3.5-5.0); BILIRUBIN,TOTAL 1.7 mg/dL (0.2-1.0); CREATININE 0.6 mg/dL (0.5-1.5); POTASSIUM 3.7 mmol/L (3.5-5.1)
[2020-08-30] MEDS: BALSAM PERU/CASTOR OIL 60 GM TUBE TP SCH (20:15)
[2020-08-30] MEDS: INSULIN GLARGINE 100 UNITS/ML 10 ML VIAL SQ SCH (20:50)
[2020-08-30] MEDS: DEXTROSE 5%-WATER 1,000 ML IV SCH (21:22)
[2020-08-30] MEDS ORDERED: DEXTROSE 50%-WATER 25 GM/50 ML VIAL IV PRN (21:30)
[2020-08-30] MEDS ORDERED: DEXTROSE 50%-WATER 50 ML DISP.SYRIN IV PRN (21:45)
[2020-08-31] VITALS (29 sets, daily range): BP systolic 113–173; BP diastolic 73–108
[2020-08-31] MEDS: FUROSEMIDE 40MG VIAL IVP SCH ×2 (04:22→17:39)
[2020-08-31] MEDS: ALBUMIN (HUMAN) 25% 50 ML IV SCH (04:22)
[2020-08-31] MEDS: DOCUSATE NA 100MG/10ML UDCUP GT SCH ×3 (05:03→21:30)
[2020-08-31] MEDS: VANCOMYCIN 1G/250ML KIT 250 ML IV SCH ×2 (05:04→17:41)
[2020-08-31 05:44] LABS: BASOPHILS % (AUTO) 0.3 % (0.0-5.0); HEMATOCRIT 41.8 % (42-54); LYMPHOCYTES % (AUTO) 7.5 % (21.0-51.0); MEAN CORPUSCULAR HEMOGLOBIN 31.2 pg (27.0-33.0); MEAN CORPUSCULAR HGB CONC 31.3 g/dL (32.0-36.0); MEAN CORPUSCULAR VOLUME 99.5 fL (79-99); MONOCYTES % (AUTO) 2.5 % (3.0-13.0); PLATELET COUNT (AUTO) 91 K/uL (130-400); RED CELL DISTRIBUTION WIDTH 14.5 % (11.0-15.5); WHITE BLOOD COUNT (AUTO) 6.9 K/uL (4.8-10.8)
[2020-08-31 05:50] LABS: CREATININE 0.6 mg/dL (0.5-1.5); POTASSIUM 3.7 mmol/L (3.5-5.1)
[2020-08-31] MEDS: INSULIN HUMULIN R 100 UNIT/ML 3ML SQ SCH ×7 (05:54→23:53)
[2020-08-31] MEDS: METOPROLOL TARTRATE 25 MG TAB PO SCH ×2 (09:00→21:31)
[2020-08-31] MEDS: ZINC SULFATE 220 CAPSULE PO SCH (09:00)
[2020-08-31] MEDS: SENNOSIDES 8.6 MG TABLET GT SCH (09:00)
[2020-08-31] MEDS: POLYETHYLENE GLYCOL 3350 17 GM POWD.PACK PO SCH (09:00)
[2020-08-31] MEDS: LANSOPRAZOLE 15 MG SOLU TAB PEG SCH (09:00)
[2020-08-31] MEDS: DEXAMETHASONE SOD PHOSPHATE 4 MG/ML 1ML VIAL IVP SCH ×2 (09:41→21:30)
[2020-08-31] MEDS: ARTIFICIAL TEARS 3.5 GM OINTMENT OU SCH ×2 (09:41→21:31)
[2020-08-31] MEDS: BALSAM PERU/CASTOR OIL 60 GM TUBE TP SCH ×2 (09:42→21:31)
[2020-08-31] MEDS: MUPIROCIN OINTMENT 22 GM TUBE TP SCH (11:54)
[2020-08-31] MEDS: ERYTHROMYCIN BASE 0.5% OPHTH OINT 1 GM TUBE OU SCH (15:55)
[2020-08-31] MEDS: FLUCONAZOLE 400 MG/NS 200 ML 200 ML IV SCH (15:55)
[2020-08-31] MEDS: DEXTROSE 5%-WATER 1,000 ML IV SCH (21:31)
[2020-08-31] MEDS: INSULIN GLARGINE 100 UNITS/ML 10 ML VIAL SQ SCH (21:32)
[2020-09-01] VITALS (30 sets, daily range): BP systolic 135–166; BP diastolic 75–96
[2020-09-01] MEDS: INSULIN HUMULIN R 100 UNIT/ML 3ML SQ SCH ×6 (05:34→17:33)
[2020-09-01] MEDS: DOCUSATE NA 100MG/10ML UDCUP GT SCH ×3 (05:34→21:15)
[2020-09-01] MEDS: FUROSEMIDE 40MG VIAL IVP SCH ×2 (05:35→16:49)
[2020-09-01 06:07] LABS: BASOPHILS % (AUTO) 0.4 % (0.0-5.0); EOSINOPHILS % (AUTO) 0.1 % (0.0-8.0); HEMATOCRIT 42.2 % (42-54); LYMPHOCYTES % (AUTO) 6.4 % (21.0-51.0); MEAN CORPUSCULAR HEMOGLOBIN 30.4 pg (27.0-33.0); MEAN CORPUSCULAR HGB CONC 30.8 g/dL (32.0-36.0); MEAN CORPUSCULAR VOLUME 98.8 fL (79-99); MONOCYTES % (AUTO) 2.8 % (3.0-13.0); NEUTROPHILS % (AUTO) 89.8 % (40.0-77.0); PLATELET COUNT (AUTO) 119 K/uL (130-400); RED BLOOD CELL COUNT(AUTO) 4.27 MIL/uL (4.50-6.20); RED CELL DISTRIBUTION WIDTH 14.3 % (11.0-15.5); WHITE BLOOD COUNT (AUTO) 8.3 K/uL (4.8-10.8)
[2020-09-01 06:20] LABS: CREATININE 0.6 mg/dL (0.5-1.5); POTASSIUM 3.2 mmol/L (3.5-5.1)
[2020-09-01] MEDS: POTASSIUM CHLORIDE 10% ELIXIR 20 MEQ/15 ML UDCUP PO PRN ×2 (06:24→07:55)
[2020-09-01] MEDS ORDERED: PHARMACY COMMUNICATION MISC SCH (07:45)
[2020-09-01] MEDS: METOPROLOL TARTRATE 25 MG TAB PO SCH ×2 (07:54→21:15)
[2020-09-01] MEDS: SENNOSIDES 8.6 MG TABLET GT SCH (07:54)
[2020-09-01] MEDS: POLYETHYLENE GLYCOL 3350 17 GM POWD.PACK PO SCH (07:54)
[2020-09-01] MEDS: LANSOPRAZOLE 15 MG SOLU TAB PEG SCH (07:54)
[2020-09-01] MEDS: ZINC SULFATE 220 CAPSULE PO SCH (07:54)
[2020-09-01] MEDS: DEXAMETHASONE SOD PHOSPHATE 4 MG/ML 1ML VIAL IVP SCH ×2 (07:55→20:59)
[2020-09-01] MEDS: ARTIFICIAL TEARS 3.5 GM OINTMENT OU SCH ×2 (07:57→21:00)
[2020-09-01] MEDS: BALSAM PERU/CASTOR OIL 60 GM TUBE TP SCH ×2 (07:57→21:11)
[2020-09-01] MEDS: POTASSIUM CHLORIDE 10MEQ/100ML 100 ML IV PRN (07:57)
[2020-09-01] MEDS ORDERED: ENOXAPARIN SODIUM 40 MG/0.4 ML SYRINGE SQ SCH (09:00)
[2020-09-01] MEDS: ENOXAPARIN SODIUM 40 MG/0.4 ML SYRINGE SQ SCH ×2 (09:00→21:06)
[2020-09-01] MEDS: MUPIROCIN OINTMENT 22 GM TUBE TP SCH (10:15)
[2020-09-01] MEDS: ERYTHROMYCIN BASE 0.5% OPHTH OINT 1 GM TUBE OU SCH (15:46)
[2020-09-01] MEDS: FLUCONAZOLE 400 MG/NS 200 ML 200 ML IV SCH ×2 (16:00→16:20)
[2020-09-01] MEDS: INSULIN GLARGINE 100 UNITS/ML 10 ML VIAL SQ SCH (21:09)
[2020-09-02] VITALS (25 sets, daily range): BP systolic 125–162; BP diastolic 66–93
[2020-09-02] MEDS: INSULIN HUMULIN R 100 UNIT/ML 3ML SQ SCH ×8 (00:15→23:58)
[2020-09-02] MEDS: FUROSEMIDE 40MG VIAL IVP SCH ×3 (00:16→17:45)
[2020-09-02] MEDS: DOCUSATE NA 100MG/10ML UDCUP GT SCH ×3 (05:05→21:12)
[2020-09-02 06:30] LABS: BASOPHILS % (AUTO) 0.5 % (0.0-5.0); EOSINOPHILS % (AUTO) 0.1 % (0.0-8.0); HEMATOCRIT 43.1 % (42-54); LYMPHOCYTES % (AUTO) 7.2 % (21.0-51.0); MEAN CORPUSCULAR HEMOGLOBIN 30.9 pg (27.0-33.0); MEAN CORPUSCULAR HGB CONC 31.8 g/dL (32.0-36.0); MEAN CORPUSCULAR VOLUME 97.3 fL (79-99); MONOCYTES % (AUTO) 2.9 % (3.0-13.0); NEUTROPHILS % (AUTO) 87.3 % (40.0-77.0); PLATELET COUNT (AUTO) 145 K/uL (130-400); RED BLOOD CELL COUNT(AUTO) 4.43 MIL/uL (4.50-6.20); RED CELL DISTRIBUTION WIDTH 14.2 % (11.0-15.5); WHITE BLOOD COUNT (AUTO) 8.9 K/uL (4.8-10.8)
[2020-09-02 06:55] LABS: CREATININE 0.7 mg/dL (0.5-1.5); POTASSIUM 3.4 mmol/L (3.5-5.1)
[2020-09-02] MEDS: MUPIROCIN OINTMENT 22 GM TUBE TP SCH (07:43)
[2020-09-02] MEDS: POLYETHYLENE GLYCOL 3350 17 GM POWD.PACK PO SCH (09:00)
[2020-09-02] MEDS: SENNOSIDES 8.6 MG TABLET GT SCH (09:00)
[2020-09-02] MEDS: POTASSIUM CHLORIDE 10% ELIXIR 20 MEQ/15 ML UDCUP PO PRN (09:13)
[2020-09-02] MEDS: ZINC SULFATE 220 CAPSULE PO SCH (09:14)
[2020-09-02] MEDS: DEXAMETHASONE SOD PHOSPHATE 4 MG/ML 1ML VIAL IVP SCH ×2 (09:14→21:10)
[2020-09-02] MEDS: METOPROLOL TARTRATE 25 MG TAB PO SCH ×2 (09:14→21:10)
[2020-09-02] MEDS: POTASSIUM CHLORIDE 10MEQ/100ML 100 ML IV PRN (09:15)
[2020-09-02] MEDS: ARTIFICIAL TEARS 3.5 GM OINTMENT OU SCH ×2 (09:15→21:10)
[2020-09-02] MEDS: BALSAM PERU/CASTOR OIL 60 GM TUBE TP SCH ×2 (09:16→21:12)
[2020-09-02] MEDS: ENOXAPARIN SODIUM 40 MG/0.4 ML SYRINGE SQ SCH ×2 (09:16→21:11)
[2020-09-02] MEDS: LANSOPRAZOLE 15 MG SOLU TAB PEG SCH (09:17)
[2020-09-02] MEDS ORDERED: GLYCOPYRROLATE 1 MG/5 ML SYRINGE IV PRN (12:00)
[2020-09-02] MEDS: FLUCONAZOLE 400 MG/NS 200 ML 200 ML IV SCH ×2 (16:00→17:37)
[2020-09-02] MEDS: ERYTHROMYCIN BASE 0.5% OPHTH OINT 1 GM TUBE OU SCH (16:00)
[2020-09-02] MEDS: INSULIN GLARGINE 100 UNITS/ML 10 ML VIAL SQ SCH (21:27)
[2020-09-03] VITALS (33 sets, daily range): BP systolic 118–161; BP diastolic 62–98
[2020-09-03] MEDS: FUROSEMIDE 40MG VIAL IVP SCH ×3 (00:01→16:38)
[2020-09-03] MEDS: DOCUSATE NA 100MG/10ML UDCUP GT SCH ×3 (05:47→21:37)
[2020-09-03 05:48] LABS: BASOPHILS % (AUTO) 0.4 % (0.0-5.0); EOSINOPHILS % (AUTO) 0.1 % (0.0-8.0); HEMATOCRIT 44.7 % (42-54); LYMPHOCYTES % (AUTO) 6.2 % (21.0-51.0); MEAN CORPUSCULAR HEMOGLOBIN 30.4 pg (27.0-33.0); MEAN CORPUSCULAR HGB CONC 30.9 g/dL (32.0-36.0); MEAN CORPUSCULAR VOLUME 98.5 fL (79-99); MONOCYTES % (AUTO) 3.9 % (3.0-13.0); NEUTROPHILS % (AUTO) 83.9 % (40.0-77.0); NUCLEATED RED BLOOD CELLS 0.6 % (0.0-0.19); PLATELET COUNT (AUTO) 158 K/uL (130-400); RED BLOOD CELL COUNT(AUTO) 4.54 MIL/uL (4.50-6.20); RED CELL DISTRIBUTION WIDTH 14.5 % (11.0-15.5); WHITE BLOOD COUNT (AUTO) 10.9 K/uL (4.8-10.8)
[2020-09-03] MEDS: INSULIN HUMULIN R 100 UNIT/ML 3ML SQ SCH ×6 (05:54→17:05)
[2020-09-03 06:00] LABS: CREATININE 0.6 mg/dL (0.5-1.5); POTASSIUM 3.6 mmol/L (3.5-5.1)
[2020-09-03] MEDS: POLYETHYLENE GLYCOL 3350 17 GM POWD.PACK PO SCH (08:59)
[2020-09-03] MEDS: METOPROLOL TARTRATE 25 MG TAB PO SCH ×2 (08:59→21:31)
[2020-09-03] MEDS: LANSOPRAZOLE 15 MG SOLU TAB PEG SCH (08:59)
[2020-09-03] MEDS: ZINC SULFATE 220 CAPSULE PO SCH (08:59)
[2020-09-03] MEDS: BALSAM PERU/CASTOR OIL 60 GM TUBE TP SCH ×2 (09:00→21:37)
[2020-09-03] MEDS: ARTIFICIAL TEARS 3.5 GM OINTMENT OU SCH ×2 (09:00→21:37)
[2020-09-03] MEDS: DEXAMETHASONE SOD PHOSPHATE 4 MG/ML 1ML VIAL IVP SCH (09:00)
[2020-09-03] MEDS: SENNOSIDES 8.6 MG TABLET GT SCH (09:00)
[2020-09-03] MEDS: POTASSIUM CHLORIDE 10% ELIXIR 20 MEQ/15 ML UDCUP PO PRN (09:01)
[2020-09-03] MEDS: ENOXAPARIN SODIUM 40 MG/0.4 ML SYRINGE SQ SCH ×2 (09:02→21:36)
[2020-09-03] MEDS ORDERED: DEXAMETHASONE SOD PHOSPHATE 4 MG/ML 1ML VIAL IVP SCH (10:00)
[2020-09-03] MEDS: MUPIROCIN OINTMENT 22 GM TUBE TP SCH (10:15)
[2020-09-03] MEDS: FLUCONAZOLE 400 MG/NS 200 ML 200 ML IV SCH (16:34)
[2020-09-03] MEDS: ERYTHROMYCIN BASE 0.5% OPHTH OINT 1 GM TUBE OU SCH (16:39)
[2020-09-03] MEDS: INSULIN GLARGINE 100 UNITS/ML 10 ML VIAL SQ SCH (21:32)
[2020-09-04] VITALS (25 sets, daily range): BP systolic 95–143; BP diastolic 64–81
[2020-09-04] MEDS: INSULIN HUMULIN R 100 UNIT/ML 3ML SQ SCH ×7 (00:18→17:27)
[2020-09-04] MEDS: FUROSEMIDE 40MG VIAL IVP SCH ×3 (00:20→16:15)
[2020-09-04 04:53] LABS: BASOPHILS % (AUTO) 0.6 % (0.0-5.0); HEMATOCRIT 44.7 % (42-54); LYMPHOCYTES % (AUTO) 7.7 % (21.0-51.0); MEAN CORPUSCULAR HEMOGLOBIN 30.9 pg (27.0-33.0); MEAN CORPUSCULAR HGB CONC 31.8 g/dL (32.0-36.0); MEAN CORPUSCULAR VOLUME 97.2 fL (79-99); NEUTROPHILS % (AUTO) 82.5 % (40.0-77.0); PLATELET COUNT (AUTO) 179 K/uL (130-400); RED CELL DISTRIBUTION WIDTH 14.6 % (11.0-15.5); WHITE BLOOD COUNT (AUTO) 12.5 K/uL (4.8-10.8)
[2020-09-04] MEDS: DOCUSATE NA 100MG/10ML UDCUP GT SCH ×3 (05:01→22:00)
[2020-09-04 05:20] LABS: ALBUMIN 2.5 g/dL (3.5-5.0); BILIRUBIN,DIRECT 0.7 mg/dL (0.0-0.3); BILIRUBIN,TOTAL 1.2 mg/dL (0.2-1.0); CREATININE 0.6 mg/dL (0.5-1.5); POTASSIUM 3.1 mmol/L (3.5-5.1); TOTAL PROTEIN, SERUM 5.2 g/dL (6.0-8.3)
[2020-09-04 06:42] LABS: ABG BASE EXCESS 7.6 mmol/L (-2.0-3.0); ABG OXYGEN SATURATION 89.5 % (95.0-99.0); ABG PCO2 39 mmHg (35-48)
[2020-09-04] MEDS: MUPIROCIN OINTMENT 22 GM TUBE TP SCH (07:47)
[2020-09-04] MEDS: POLYETHYLENE GLYCOL 3350 17 GM POWD.PACK PO SCH (09:00)
[2020-09-04] MEDS: BALSAM PERU/CASTOR OIL 60 GM TUBE TP SCH ×2 (10:00→23:52)
[2020-09-04] MEDS: SENNOSIDES 8.6 MG TABLET GT SCH (10:15)
[2020-09-04] MEDS: LANSOPRAZOLE 15 MG SOLU TAB PEG SCH (10:15)
[2020-09-04] MEDS: ARTIFICIAL TEARS 3.5 GM OINTMENT OU SCH ×2 (10:15→23:52)
[2020-09-04] MEDS: METOPROLOL TARTRATE 25 MG TAB PO SCH ×2 (10:15→23:13)
[2020-09-04] MEDS: ENOXAPARIN SODIUM 40 MG/0.4 ML SYRINGE SQ SCH ×2 (10:15→23:13)
[2020-09-04] MEDS ORDERED: PHARMACY COMMUNICATION MISC SCH ×2 (11:30→13:30)
[2020-09-04] MEDS ORDERED: MICAFUNGIN 100MG+NS 100ML 100 ML IV SCH (12:15)
[2020-09-04] MEDS: ERYTHROMYCIN BASE 0.5% OPHTH OINT 1 GM TUBE OU SCH (16:05)
[2020-09-04] MEDS: NYSTATIN 15 GM POWDER TP SCH (23:14)
[2020-09-05] VITALS (26 sets, daily range): BP systolic 89–147; BP diastolic 55–89
[2020-09-05] MEDS: INSULIN HUMULIN R 100 UNIT/ML 3ML SQ SCH ×7 (00:18→17:20)
[2020-09-05] MEDS: INSULIN GLARGINE 100 UNITS/ML 10 ML VIAL SQ SCH ×2 (00:19→20:49)
[2020-09-05] MEDS: FUROSEMIDE 40MG VIAL IVP SCH ×3 (00:21→16:58)
[2020-09-05 05:37] LABS: BASOPHILS % (AUTO) 0.8 % (0.0-5.0); EOSINOPHILS % (AUTO) 0.1 % (0.0-8.0); HEMATOCRIT 48.1 % (42-54); LYMPHOCYTES % (AUTO) 7.6 % (21.0-51.0); MEAN CORPUSCULAR HEMOGLOBIN 30.5 pg (27.0-33.0); MEAN CORPUSCULAR HGB CONC 31.2 g/dL (32.0-36.0); MONOCYTES % (AUTO) 2.6 % (3.0-13.0); NUCLEATED RED BLOOD CELLS 5.2 % (0.0-0.19); PLATELET COUNT (AUTO) 209 K/uL (130-400); RED BLOOD CELL COUNT(AUTO) 4.91 MIL/uL (4.50-6.20); RED CELL DISTRIBUTION WIDTH 14.9 % (11.0-15.5); WHITE BLOOD COUNT (AUTO) 14.9 K/uL (4.8-10.8)
[2020-09-05 05:54] LABS: ALBUMIN 2.6 g/dL (3.5-5.0); BILIRUBIN,TOTAL 1.4 mg/dL (0.2-1.0); CREATININE 0.7 mg/dL (0.5-1.5); CRP QUANTITATIVE 34.3 mg/L (0.00-9.0); MAGNESIUM 2.3 mg/dL (1.80-2.40); POTASSIUM 3.1 mmol/L (3.5-5.1); TOTAL PROTEIN, SERUM 5.5 g/dL (6.0-8.3)
[2020-09-05] MEDS: DOCUSATE NA 100MG/10ML UDCUP GT SCH (06:00)
[2020-09-05] MEDS ORDERED: PHARMACY COMMUNICATION MISC SCH ×2 (07:30→09:30)
[2020-09-05] MEDS ORDERED: DEXAMETHASONE SOD PHOSPHATE 4 MG/ML 1ML VIAL ONE (07:53)
[2020-09-05] MEDS ORDERED: COMPOUND PO REF 1 EA BTL MISC PRN (08:30)
[2020-09-05] MEDS: LANSOPRAZOLE PEG SCH ×2 (09:00)
[2020-09-05] MEDS: SENNOSIDES 8.6 MG TABLET GT SCH (09:00)
[2020-09-05] MEDS: BALSAM PERU/CASTOR OIL 60 GM TUBE TP SCH ×2 (09:00→20:51)
[2020-09-05] MEDS: MICAFUNGIN 100MG+NS 100ML 100 ML IV SCH (09:00)
[2020-09-05] MEDS: SODIUM BICARB PEG SCH ×2 (09:00)
[2020-09-05] MEDS: DEXAMETHASONE SOD PHOSPHATE 4 MG/ML 1ML VIAL IVP SCH (09:00)
[2020-09-05] MEDS: NYSTATIN 15 GM POWDER TP SCH ×2 (09:00→20:50)
[2020-09-05] MEDS: ARTIFICIAL TEARS 3.5 GM OINTMENT OU SCH ×2 (09:00→20:50)
[2020-09-05] MEDS: ENOXAPARIN SODIUM 40 MG/0.4 ML SYRINGE SQ SCH ×2 (09:00→20:46)
[2020-09-05] MEDS: METOPROLOL TARTRATE 25 MG TAB PO SCH ×2 (09:00→20:42)
[2020-09-05] MEDS ORDERED: LANSOPRAZOLE 15 MG SOLU TAB PEG SCH (09:30)
[2020-09-05] MEDS ORDERED: POLYETHYLENE GLYCOL 3350 17 GM POWD.PACK PO PRN (09:30)
[2020-09-05] MEDS ORDERED: POTASSIUM CHLORIDE 10% ELIXIR 20 MEQ/15 ML UDCUP PO PRN (10:15)
[2020-09-05] MEDS ORDERED: DEXAMETHASONE SOD PHOSPHATE 4 MG/ML 1ML VIAL IVP SCH (10:19)
[2020-09-05] MEDS ORDERED: [UNRECOGNIZED DRUG - REMARK] MISC SCH (12:15)
[2020-09-05] MEDS: POTASSIUM CHLORIDE 20MEQ/100ML 100 ML IV PRN (12:19)
[2020-09-05 14:13] LABS: CREATININE 0.6 mg/dL (0.5-1.5); POTASSIUM 4.4 mmol/L (3.5-5.1)
[2020-09-06] VITALS (25 sets, daily range): BP systolic 93–137; BP diastolic 55–76
[2020-09-06] MEDS: FUROSEMIDE 40MG VIAL IVP SCH ×3 (01:29→17:27)
[2020-09-06 05:48] LABS: BASOPHILS % (AUTO) 0.1 % (0.0-5.0); EOSINOPHILS % (AUTO) 0.1 % (0.0-8.0); HEMATOCRIT 43.5 % (42-54); LYMPHOCYTES % (AUTO) 5.5 % (21.0-51.0); MEAN CORPUSCULAR HEMOGLOBIN 31.1 pg (27.0-33.0); MEAN CORPUSCULAR HGB CONC 31.5 g/dL (32.0-36.0); MEAN CORPUSCULAR VOLUME 98.6 fL (79-99); MONOCYTES % (AUTO) 3.9 % (3.0-13.0); PLATELET COUNT (AUTO) 182 K/uL (130-400); RED BLOOD CELL COUNT(AUTO) 4.41 MIL/uL (4.50-6.20); RED CELL DISTRIBUTION WIDTH 15.3 % (11.0-15.5); WHITE BLOOD COUNT (AUTO) 15.7 K/uL (4.8-10.8)
[2020-09-06] MEDS: INSULIN HUMULIN R 100 UNIT/ML 3ML SQ SCH ×7 (06:00→17:27)
[2020-09-06 06:07] LABS: ALBUMIN 2.4 g/dL (3.5-5.0); BAND NEUTROPHILS % (MANUAL) 8 % (0-2); BILIRUBIN,TOTAL 1.1 mg/dL (0.2-1.0); CREATININE 0.8 mg/dL (0.5-1.5); EOSINOPHILS % (MANUAL) 1 % (1-6); LYMPHOCYTES % (MANUAL) 10 % (22-44); MAN.DIFF COMMENT-IMPRESSION MANUAL DIFFERENTIAL; MONOCYTES % (MANUAL) 5 % (2-9); REACTIVE LYMPHOCYTES 1 % (0-0); SEGMENTED NEUTROPHILS % 75 % (40-70); TOTAL PROTEIN, SERUM 5.2 g/dL (6.0-8.3)
[2020-09-06 06:08] LABS: PLATELET MORPHOLOGY COMMENT ADEQUATE
[2020-09-06] MEDS: POTASSIUM CHLORIDE 20MEQ/100ML 100 ML IV PRN ×3 (06:25→20:31)
[2020-09-06] MEDS ORDERED: POTASSIUM CHLORIDE 10% ELIXIR 20 MEQ/15 ML UDCUP PO SCH (08:00)
[2020-09-06] MEDS: SENNOSIDES 8.6 MG TABLET GT SCH (08:22)
[2020-09-06] MEDS: DOCUSATE NA 100MG/10ML UDCUP GT SCH (08:22)
[2020-09-06] MEDS: METOPROLOL TARTRATE 25 MG TAB PO SCH ×2 (08:22→20:35)
[2020-09-06] MEDS: DEXAMETHASONE SOD PHOSPHATE 4 MG/ML 1ML VIAL IVP SCH (08:22)
[2020-09-06] MEDS: ENOXAPARIN SODIUM 40 MG/0.4 ML SYRINGE SQ SCH ×2 (08:23→20:32)
[2020-09-06] MEDS: NYSTATIN 15 GM POWDER TP SCH ×2 (08:24→20:32)
[2020-09-06] MEDS ORDERED: POTASSIUM CHLORIDE 10% ELIXIR 20 MEQ/15 ML UDCUP NG SCH (08:45)
[2020-09-06] MEDS: MICAFUNGIN 100MG+NS 100ML 100 ML IV SCH (09:58)
[2020-09-06] MEDS: ARTIFICIAL TEARS 3.5 GM OINTMENT OU SCH ×2 (09:58→20:35)
[2020-09-06] MEDS: LANSOPRAZOLE PEG SCH ×2 (10:19)
[2020-09-06] MEDS: SODIUM BICARB PEG SCH ×2 (10:19)
[2020-09-06] MEDS: BALSAM PERU/CASTOR OIL 60 GM TUBE TP SCH ×2 (12:50→20:35)
[2020-09-06 13:21] LABS: CREATININE 0.8 mg/dL (0.5-1.5); POTASSIUM 3.8 mmol/L (3.5-5.1)
[2020-09-06] MEDS: INSULIN GLARGINE 100 UNITS/ML 10 ML VIAL SQ SCH (20:34)
[2020-09-07] VITALS (13 sets, daily range): BP systolic 100–142; BP diastolic 54–82
[2020-09-07] MEDS: INSULIN HUMULIN R 100 UNIT/ML 3ML SQ SCH ×5 (00:15→11:59)
[2020-09-07] MEDS: FUROSEMIDE 40MG VIAL IVP SCH ×2 (00:16→08:36)
[2020-09-07 07:12] LABS: BASOPHILS % (AUTO) 0.9 % (0.0-5.0); EOSINOPHILS % (AUTO) 0.1 % (0.0-8.0); HEMATOCRIT 42.8 % (42-54); LYMPHOCYTES % (AUTO) 5.8 % (21.0-51.0); MEAN CORPUSCULAR HEMOGLOBIN 31.2 pg (27.0-33.0); MEAN CORPUSCULAR HGB CONC 30.8 g/dL (32.0-36.0); MEAN CORPUSCULAR VOLUME 101.2 fL (79-99); MONOCYTES % (AUTO) 2.6 % (3.0-13.0); NEUTROPHILS % (AUTO) 84.6 % (40.0-77.0); NUCLEATED RED BLOOD CELLS 10.2 % (0.0-0.19); PLATELET COUNT (AUTO) 183 K/uL (130-400); RED BLOOD CELL COUNT(AUTO) 4.23 MIL/uL (4.50-6.20); RED CELL DISTRIBUTION WIDTH 15.9 % (11.0-15.5); WHITE BLOOD COUNT (AUTO) 15.3 K/uL (4.8-10.8)
[2020-09-07 07:38] LABS: ALBUMIN 2.3 g/dL (3.5-5.0); CREATININE 0.8 mg/dL (0.5-1.5); MAGNESIUM 2.3 mg/dL (1.80-2.40); POTASSIUM 3.9 mmol/L (3.5-5.1); TOTAL PROTEIN, SERUM 5.3 g/dL (6.0-8.3)
[2020-09-07 07:44] LABS: LYMPHOCYTES % (MANUAL) 7 % (22-44); MONOCYTES % (MANUAL) 8 % (2-9); SEGMENTED NEUTROPHILS % 85 % (40-70)
[2020-09-07 07:45] LABS: MAN.DIFF COMMENT-IMPRESSION MANUAL DIFFERENTIAL
[2020-09-07 07:49] LABS: PLATELET MORPHOLOGY COMMENT ADEQUATE
[2020-09-07] MEDS: SENNOSIDES 8.6 MG TABLET GT SCH (08:29)
[2020-09-07] MEDS: DOCUSATE NA 100MG/10ML UDCUP GT SCH (08:29)
[2020-09-07] MEDS: METOPROLOL TARTRATE 25 MG TAB PO SCH (08:33)
[2020-09-07] MEDS: MICAFUNGIN 100MG+NS 100ML 100 ML IV SCH (08:34)
[2020-09-07] MEDS: ENOXAPARIN SODIUM 40 MG/0.4 ML SYRINGE SQ SCH (08:35)
[2020-09-07] MEDS: DEXAMETHASONE SOD PHOSPHATE 4 MG/ML 1ML VIAL IVP SCH (08:36)
[2020-09-07] MEDS: NYSTATIN 15 GM POWDER TP SCH (08:36)
[2020-09-07] MEDS: ARTIFICIAL TEARS 3.5 GM OINTMENT OU SCH (08:36)
[2020-09-07] MEDS: LANSOPRAZOLE PEG SCH ×2 (10:16)
[2020-09-07] MEDS: SODIUM BICARB PEG SCH ×2 (10:16)
[2020-09-07] MEDS: BALSAM PERU/CASTOR OIL 60 GM TUBE TP SCH (10:16)
[2020-09-07] MEDS ORDERED: FOLIC ACID 5 MG/ML VIAL IV SCH (11:30)
[2020-09-07] MEDS ORDERED: THIAMINE HCL 100 MG TABLET PO SCH (11:30)
[2020-09-07] MEDS ORDERED: MAGNESIUM 2GM PREMIX 50ML 50 ML IV ONE (16:30)
[2020-09-08] MEDS ORDERED: THIAMINE HCL 100 MG/ML 2ML VIAL IVP SCH (09:00)
[2020-09-08] MEDS ORDERED: FOLIC ACID 5 MG/ML VIAL IV SCH (09:00)
== END 2020-09-07 16:39 | disposition expired | DRG 4 ==
LOC: EDH 14:22 → EDHIP 16:41 → 2AH 08-06 03:30 → 2CV 08-09 06:12 → 2DH 09-05 19:43 → 4BH 09-07 12:56
PROVIDERS: ADMIT Internal Medicine; ATTEND Internal Medicine
PROC: XW033E5 Introduction of Remdesivir Anti-infective into Peripheral Vein, Percutaneous Approach, New Technology Group 5 (ICD-10-PCS; 2020-08-04)
PROC: XW13325 Transfusion of Convalescent Plasma (Nonautologous) into Peripheral Vein, Percutaneous Approach, New Technology Group 5 (ICD-10-PCS; 2020-08-04)
PROC: 02HV33Z Insertion of Infusion Device into Superior Vena Cava, Percutaneous Approach (ICD-10-PCS; 2020-08-05)
PROC: 5A0935A Assistance with Respiratory Ventilation, Less than 24 Consecutive Hours, High Flow/Velocity Cannula (ICD-10-PCS; 2020-08-06)
PROC: 5A1955Z Respiratory Ventilation, Greater than 96 Consecutive Hours (ICD-10-PCS; principal; 2020-08-09)
PROC: 0BH17EZ Insertion of Endotracheal Airway into Trachea, Via Natural or Artificial Opening (ICD-10-PCS; 2020-08-09)
PROC: 5A09357 Assistance with Respiratory Ventilation, Less than 24 Consecutive Hours, Continuous Positive Airway Pressure (ICD-10-PCS; 2020-08-09)
PROC: 0B110F4 Bypass Trachea to Cutaneous with Tracheostomy Device, Open Approach (ICD-10-PCS; 2020-08-27)
PROC: B548ZZA Ultrasonography of Superior Vena Cava, Guidance (ICD-10-PCS; 2020-08-29)
PROC: 0DJ08ZZ Inspection of Upper Intestinal Tract, Via Natural or Artificial Opening Endoscopic (ICD-10-PCS; 2020-08-29)
PROC: 0BP1XFZ Removal of Tracheostomy Device from Trachea, External Approach (ICD-10-PCS; 2020-08-31)
PROC: 5A09357 Assistance with Respiratory Ventilation, Less than 24 Consecutive Hours, Continuous Positive Airway Pressure (ICD-10-PCS; 2020-09-04)
PROC: 5A09357 Assistance with Respiratory Ventilation, Less than 24 Consecutive Hours, Continuous Positive Airway Pressure (ICD-10-PCS; 2020-09-05)
PROC: 5A09357 Assistance with Respiratory Ventilation, Less than 24 Consecutive Hours, Continuous Positive Airway Pressure (ICD-10-PCS; 2020-09-06)
PROC: 5A09357 Assistance with Respiratory Ventilation, Less than 24 Consecutive Hours, Continuous Positive Airway Pressure (ICD-10-PCS; 2020-09-07)
PROC: 0BH17EZ Insertion of Endotracheal Airway into Trachea, Via Natural or Artificial Opening (ICD-10-PCS; 2020-09-07)
DX: A41.89 Other specified sepsis (principal); U07.1 COVID-19; J12.82 Pneumonia due to coronavirus disease 2019; J80 Acute respiratory distress syndrome; R65.21 Severe sepsis with septic shock; Z68.41 Body mass index [BMI] 40.0-44.9, adult; D68.59 Other primary thrombophilia; E87.0 Hyperosmolality and hypernatremia; G72.81 Critical illness myopathy; G93.1 Anoxic brain damage, not elsewhere classified; I48.20 Chronic atrial fibrillation, unspecified; B49 Unspecified mycosis; I49.01 Ventricular fibrillation; I48.91 Unspecified atrial fibrillation; E66.01 Morbid (severe) obesity due to excess calories; E87.6 Hypokalemia; B96.89 Other specified bacterial agents as the cause of diseases classified elsewhere; Z85.46 Personal history of malignant neoplasm of prostate; G47.33 Obstructive sleep apnea (adult) (pediatric); Z95.0 Presence of cardiac pacemaker; E11.9 Type 2 diabetes mellitus without complications; N28.9 Disorder of kidney and ureter, unspecified; I10 Essential (primary) hypertension; B95.2 Enterococcus as the cause of diseases classified elsewhere; B97.89 Other viral agents as the cause of diseases classified elsewhere; C61 Malignant neoplasm of prostate; E03.9 Hypothyroidism, unspecified; E11.65 Type 2 diabetes mellitus with hyperglycemia; E86.1 Hypovolemia; F41.9 Anxiety disorder, unspecified; K05.10 Chronic gingivitis, plaque induced; R13.12 Dysphagia, oropharyngeal phase; T38.0X5A Adverse effect of glucocorticoids and synthetic analogues, initial encounter; Z74.01 Bed confinement status; Z79.01 Long term (current) use of anticoagulants; Z90.49 Acquired absence of other specified parts of digestive tract; D69.6 Thrombocytopenia, unspecified
CPT/HCPCS: 31500; 36415; 36600; 43235; 70450; 70486; 71045; 74018; 76705; 80048; 80053; 81001; 82248; 82306; 82435; 82550; 82728; 82803; 82947; 82948; 83036; 83605; 83615; 83735; 83874; 83880; 84132; 84145; 84295; 84439; 84443; 84478; 84481; 84484; 85018; 85025; 85378; 85610; 85730; 86022; 86078; 86140; 86606; 86900; 86901; 86927; 87040; 87070; 87076; 87077; 87088; 87186; 87205; 87426; 87804; 92950; 93005; 93306; 93970; 94002; 94003; 94660; 94760; 96361; 96374; A4346; A4606; C1751; C1894; G0378; J0330; J0696; J1100; J1200; J1450; J1650; J1815; J1940; J2001; J2060; J2248; J2250; J2405; J2704; J3010; J3370; J3475; J3480; J3490; J7030; J7040; J7050; J7060; J7070; P9046; P9047; U0003